=== PATIENT | female | born 1985 | race Caucasian/White ===

== ENCOUNTER 2016-10-10 17:52 | Emergency (ER) | payer MEDICAID, OTHER ==
[2016-10-10] VITALS (7 sets, daily range): BP systolic 133–162; BP diastolic 62–81; PULSE 98–130; RESP 16–24; TEMP 97.9; O2SAT 99–100
[~2016-10-10] VITALS: Ht 167.6 cm; Wt 100.0 kg
[~2016-10-10 17:52] MED LIST: PREN27TA PO
--- NOTE | 2016-10-10 17:58 | PD ---
Physical Exam Date Seen by Provider: Oct 10, 2016 Time Seen by Provider: 17:56 Narrative 31 yo female that presents to the ED for evaluation of chest pain. History of pulmonary embolism. Pain with SOB. Going on since today. Vitals are stable in triage with elevated HR. Awaiting Bed placement. Data Data Last Documented VS Vital Signs Date Time Temp Pulse Resp B/P Pulse Ox O2 Delivery O2 Flow Rate FiO2 10/10/16 17:54 97.9 130 24 162/81 99 Room Air [facility] Medical Record Reviewed: Yes Supervised Visit with YOANA: Jared Lebron Oct 10, 2016 17:58
--- NOTE | 2016-10-10 18:14 | PD ---
HPI Chief Complaint: Chest Pain Time Seen by Provider: 18:11 Travel History International Travel<30 days: No Contact w/Intl Traveler<30days: No Traveled to known affect area: No History of Present Illness HPI Patient comes in complaining of left-sided chest pain sharp stabbing like in nature without radiation. Patient states that she's having associated shortness of breath with this. Denies anything making it better or worse. Patient states she has a PE in the past less than a year ago was on Elliquis for approximately 2 months was taken off of it. Denies any recent travel, trauma, surgery, hospitalization, or tobacco use. Patient does report his implantable control. Patient states she was sitting at work when the pain started and just feels like it has just got worse. PFSH Past Medical History Blood Disorders: No Bipolar Disorder: Yes Anxiety: Yes Depression: Yes Diabetes: No Diminished Hearing: No Deep Vein Thrombosis: Yes Genitourinary: Yes (UTI, OVARIAN CYST) Kidney Stones: Yes Psychiatric: Yes (BIPOLAR) Reproductive: Yes (hx ovarian cyst) Immunizations Current: Yes Influenza Vaccination: No ?: Not : 5 Para: 2 Miscarriage: 2 Past Surgical History Cholecystectomy: Yes Oral Surgery: Yes (EXTRACTION WISDOM TOOTH,SKIN GRAFT TO MOUTH) Tonsillectomy: Yes Other Surgery: Yes (TONSILLECTOMY) Social History Alcohol Use: No Tobacco Use: No Substance Use: No Allergies-Medications (Allergen,Severity, Reaction): Coded Allergies: Latex (Verified Allergy, Intermediate, RASH/SWELLING, 10/10/16) Reported Meds & Prescriptions Reported Meds & Active Scripts Active Flexeril (Cyclobenzaprine HCl) 10 Mg Tab 10 Mg PO Q8HR PRN Naprosyn (Naproxen) 500 Mg Tab 500 Mg PO Q12HR PRN Review of Systems Except as stated in HPI: all other systems reviewed are Neg Physical Exam Narrative GENERAL: Well-developed, overly nourished, in no acute distress, and non-ill appearing. SKIN: Focused skin assessment warm and dry. HEAD: Atraumatic. Normocephalic. EYES: Pupils equal and round. EOMI. No scleral icterus. No injection or drainage. ENT: No nasal bleeding or discharge. Mucous membranes pink and moist. NECK: Trachea midline. Supple. No nuclear rigidity. CARDIOVASCULAR: Tachycardia rate and regular rhythm. No murmur appreciated. RESPIRATORY: No accessory muscle use. No respiratory distress. Clear to auscultation. Breath sounds equal bilaterally. MUSCULOSKELETAL: No obvious deformities. No clubbing. No cyanosis. No edema. Full range of motion. NEUROLOGICAL: Awake and alert. No obvious cranial nerve deficits. Motor grossly within normal limits. Normal speech. PSYCHIATRIC: Appropriate mood and affect; insight and judgment normal. Data Data Last Documented VS Vital Signs Date Time Temp Pulse Resp B/P Pulse Ox O2 Delivery O2 Flow Rate FiO2 10/10/16 20:03 98 18 137/62 100 Room Air 10/10/16 17:54 97.9 Orders Electrocardiogram (10/10/16 18:05) Basic Metabolic Panel (Bmp) (10/10/16 18:05) Ckmb (Isoenzyme) Profile (10/10/16 18:05) Complete Blood Count With Diff (10/10/16 18:05) Magnesium (Mg) (10/10/16 18:05) Prothrombin Time / Inr (Pt) (10/10/16 18:05) Act Partial Throm Time (Ptt) (10/10/16 18:05) Troponin I (10/10/16 18:05) Chest, Single Ap (10/10/16 18:05) Ecg Monitoring (10/10/16 18:05) Bilateral Bp Monitoring (10/10/16 18:05) Iv Access Insert/Monitor (10/10/16 18:05) Oximetry (10/10/16 18:05) Oxygen Administration (10/10/16 18:05) Sodium Chloride 0.9% Flush (Ns Flush) (10/10/16 18:15) Ct Pulmonary Angiogram (10/10/16 18:05) Sodium Chlor 0.9% 1000 Ml Inj (Ns 1000 M (10/10/16 18:15) Aspirin Chew (Aspirin Chew) (10/10/16 18:15) Morphine Inj (Morphine Inj) (10/10/16 19:00) Ondansetron Inj (Zofran Inj) (10/10/16 19:45) Morphine Inj (Morphine Inj) (10/10/16 19:45) Methylprednisolone So Succ Inj (Solumedr (10/10/16 19:45) Albuterol-Ipratropium Neb (Duoneb Neb) (10/10/16 19:45) Iohexol 350 Inj (Omnipaque 350 Inj) (10/10/16 19:44) Ketorolac Inj (Toradol Inj) (10/10/16 20:30) Cyclobenzaprine (Flexeril) (10/10/16 21:15) Labs Laboratory Tests Test 10/10/16 18:15 White Blood Count 14.8 TH/MM3 Red Blood Count 4.60 MIL/MM3 Hemoglobin 13.6 GM/DL Hematocrit 40.0 % Mean Corpuscular Volume 86.9 FL Mean Corpuscular Hemoglobin 29.6 PG Mean Corpuscular Hemoglobin 34.1 % Concent Red Cell Distribution Width 13.7 % Platelet Count 297 TH/MM3 Mean Platelet Volume 7.7 FL Neutrophils (%) (Auto) 51.7 % Lymphocytes (%) (Auto) 37.9 % Monocytes (%) (Auto) 7.9 % Eosinophils (%) (Auto) 1.9 % Basophils (%) (Auto) 0.6 % Neutrophils # (Auto) 7.7 TH/MM3 Lymphocytes # (Auto) 5.6 TH/MM3 Monocytes # (Auto) 1.2 TH/MM3 Eosinophils # (Auto) 0.3 TH/MM3 Basophils # (Auto) 0.1 TH/MM3 CBC Comment AUTO DIFF Differential Comment AUTO DIFF CONFIRMED Platelet Estimate NORMAL Platelet Morphology Comment NORMAL Prothrombin Time 10.2 SEC Prothromb Time International 0.9 RATIO Ratio Activated Partial 24.5 SEC Thromboplast Time Sodium Level 137 MEQ/L Potassium Level 4.1 MEQ/L Chloride Level 103 MEQ/L Carbon Dioxide Level 26.3 MEQ/L Anion Gap 8 MEQ/L Blood Urea Nitrogen 11 MG/DL Creatinine 0.81 MG/DL Estimat Glomerular Filtration 82 ML/MIN Rate Random Glucose 123 MG/DL Calcium Level 8.7 MG/DL Magnesium Level 2.3 MG/DL Total Creatine Kinase 70 U/L Troponin I LESS THAN 0.02 NG/ML MDM Medical Decision Making Medical Screen Exam Complete: Yes Emergency Medical Condition: Yes Interpretation(s) EKG reviewed by Dr. Baumann shows sinus tach with ventricular rate of 100. No STEMI. CT pulmonary angiogram read by radiology shows: 1. Negative for pulmonary embolus. 2. Multifocal lobular air trapping within the lungs. Differential diagnosis includes reactive airways disease or bronchial inflammatory changes. Chest x-ray read by the radiologist shows: Low lung volumes with basilar atelectasis. No dense consolidation or significant effusion. Differential Diagnosis Pneumonia, PE, acute coronary syndrome, pneumothorax, electrolyte abnormality, hemopneumothorax, other Narrative Course Patient said examined. IV was Established. Patient placed on tube station attendant. Patient was given any aspirin, IV fluids, and morphine. Chest x-ray and CT pulmonary angiogram were ordered. Patient reported no improvement of her symptoms with morphine 2 mg. Patient was given additional 4 mg. Patient reported no improvement of her symptoms with this just made her feel dizzy. After reviewing chest x-ray and CT was read by the radiologist. Patient was given Solu-Medrol and DuoNeb course no improvement of her symptoms. Patient was given a dose of Toradol IV. Patient will minimal improvement of her symptoms. Discussed patient with Dr. White, recommends offering patient chest pain center admission versus outpatient follow-up. Patient was offered chest pain center for further treatment and evaluation. Patient wants to just follow-up with her primary care physician tomorrow. The patients chest pain by history and evaluation appears noncardiac, nor noncardiopulmonary in etiology. Evaluation revealed no evidence of cardiac involvement at this time. There is no clinical evidence to suggest thoracic aortic aneurysm or pathology, nor evidence to suggest pulmonary embolism, pericarditis, pneumothorax, nor pneumonia at this time. The patient has minimal risk factors for cardiac disease or aortic disease. The patient was referred to and instructed to follow up with her primary care physician and/or Cardiology for potential outpatient evaluation. I discussed this management with the patient and the patient understands the importance or acute follow up. The patient was instructed to return at any time if chest pain persists, changes or worsens in anyway while awaiting follow up. The patient agreed with plan. Patient in no obvious distress upon re-evaluation. All pertinent laboratory/ Radiology result(s) discussed with patient. Patient was asked if they wanted to speak to my attending, which the patient did not wish to do at this time. Any questions/concerns in reference to patient diagnosis/condition discussed and clarified prior to patient's discharge. Reinforced sheer importance of close follow up with patient's primary physician or primary care clinic and/or business integration manager. Instructed patient to return to ED immediately, if symptoms return /worsen. Pt showed understanding of above instructions. Further instructions and recommendations were detailed in discharge paperwork. Pt ambulated without difficulty out of ED at discharge. Diagnosis Primary Impression: Left sided chest pain Referrals: Nelsy Mcdonough MD Patient Instructions: Chest Pain (ED), General Instructions Additional Instructions: Follow-up with your primary care physician and/or business integration manager in 1-2 days for reevaluation. Take all medication as prescribed. Return to the emergency department if symptoms get worse fevers, worsening chest pain, worsening shortness of breath, unable to tolerate fluids, or for other concerns. Med/Other Pt SpecificInfo: Prescription(s) given Scripts Cyclobenzaprine (Flexeril)10 Mg Tab10 Mg PO Q8HR PRN (MUSCLE PAIN) #15 TAB Ref 0 Prov:Dalila White MD 10/10/16 Naproxen (Naprosyn)500 Mg [id number] Mg PO Q12HR PRN (PAIN SCALE 1 TO 10) #14 TAB Ref 0 Prov:Dalila White MD 10/10/16 Disposition: 01 DISCHARGE HOME Condition: Stable Mynor Garrison Oct 10, 2016 18:14
[2016-10-10] MEDS ORDERED: SODIUM CHLORIDE 0.9% FLUSH 10 ML FLUSH IVF PRN (18:15)
[2016-10-10] MEDS ORDERED: SODIUM CHLOR 0.9% 1000 ML INJ 1,000 ML IV ONE (18:15)
[2016-10-10] MEDS ORDERED: ASPIRIN 81 MG CHEW TAB PO ONE (18:15)
[2016-10-10 18:37] LABS: AUTOMATED NEUTROPHIL # 7.7 TH/MM3 (1.8-7.7); BASOPHIL # 0.1 TH/MM3 (0-0.2); BASOPHIL % 0.6 % (0.0-2.0); EOSINOPHIL # 0.3 TH/MM3 (0-0.4); EOSINOPHIL % 1.9 % (0.0-4.0); LYMPH % 37.9 % (9.0-44.0); LYMPHOCYTE # 5.6 TH/MM3 (1.0-4.8); MEAN CELL VOLUME 86.9 FL (80.0-100.0); MEAN CORPUSCULAR HEMOGLOBIN 29.6 PG (27.0-34.0); MEAN CORPUSCULAR HGB CONC 34.1 % (32.0-36.0); MONO % 7.9 % (0.0-8.0); NEUT % 51.7 % (16.0-70.0); PLATELET COUNT 297 TH/MM3 (150-450); RED CELL DISTRIBUTION WIDTH 13.7 % (11.6-17.2); WHITE BLOOD COUNT 14.8 TH/MM3 (4.0-11.0)
[2016-10-10 18:45] LABS: HEMO FLAGS AUTO DIFF
[2016-10-10 18:48] LABS: ANION GAP 8 MEQ/L (5-15); BICARBONATE 26.3 MEQ/L (21.0-32.0); BLOOD UREA NITROGEN 11 MG/DL (7-18); CHLORIDE 103 MEQ/L (98-107); GLOMERULAR FILTRATION RATE 82 ML/MIN (>89); MAGNESIUM 2.3 MG/DL (1.5-2.5); POTASSIUM 4.1 MEQ/L (3.5-5.1); SODIUM (NA) 137 MEQ/L (136-145)
[2016-10-10 18:53] LABS: CREATINE KINASE 70 U/L (26-192)
[2016-10-10 19:00] LABS: APTT (PATIENT) 24.5 SEC (24.3-30.1); INTERNATIONAL NORMALIZED RATIO 0.9 RATIO; PROTHROMBIN TIME - PATIENT 10.2 SEC (9.8-11.6)
[2016-10-10] MEDS ORDERED: MORPHINE SULFATE 4 MG/ML INJ IV PUSH ONE ×2 (19:00→19:45)
--- NOTE | 2016-10-10 19:05 | RADRPT ---
EXAM DATE/TIME: 10/10/2016 18:25 [facility] COMPARISON: No previous studies available for comparison. INDICATIONS : Chest pain and shortness of breath. MEDICAL HISTORY : Blood clots in lungs. SURGICAL HISTORY : None. ENCOUNTER: Initial ACUITY: 1 day PAIN SCORE: 10/10 LOCATION: chest FINDINGS: A single view of the chest demonstrates the lungs to be symmetrically aerated without evidence of mas s, infiltrate or effusion. The cardiomediastinal contours are unremarkable. Osseous structures are intact. CONCLUSION: 1. Low lung volumes with basilar atelectasis. No dense consolidation or significant effusion. Torey Singer MD on October 10, 2016 at 19:02 Board Certified Radiologist. This report was verified electronically.
--- NOTE | 2016-10-10 19:34 | RADRPT ---
EXAM DATE/TIME: 10/10/2016 19:01 [facility] COMPARISON: No previous studies available for comparison. INDICATIONS : Chest pain, evaluate for pulmonary embolus. IV CONTRAST: 70 cc Omnipaque 350 (iohexol) IV RADIATION DOSE: 24.03 CTDIvol (mGy) MEDICAL HISTORY : Deep venous thrombosis. Pulmonary embolus. SURGICAL HISTORY : Cholecystectomy. ENCOUNTER: Initial ACUITY: 1 day PAIN SCALE: 5/10 LOCATION: Bilateral chest TECHNIQUE: Volumetric scanning of the chest was performed using a pulmonary embolism protocol MIP images were re constructed. Using automated exposure control and adjustment of the mA and/or kV according to patien t size, radiation dose was kept as low as reasonably achievable to obtain optimal diagnostic quality images. DICOM format image data is available electronically for review and comparison. Follow-up recommendations for incidentally detected pulmonary nodules are based at a minimum on nodul e size and patient risk factors according to Fleischner Society Guidelines. FINDINGS: No filling defects identified to suggest pulmonary embolus. No pleural or pericardial effusion. No ad enopathy. There are low lung volumes. There is also air trapping within the lungs which could be related to deidre e form of reactive airways disease or airway inflammation. CONCLUSION: 1. Negative for pulmonary embolus. 2. Multifocal lobular air trapping within the lungs. Differential diagnosis includes reactive airways disease or bronchial inflammatory changes. Torey Singer MD on October 10, 2016 at 19:27 Board Certified Radiologist. This report was verified electronically.
[2016-10-10] MEDS ORDERED: IOHEXOL 350 MG/ML 10 ML VIAL (for RAD DIAG) IV ONE (19:44)
[2016-10-10] MEDS ORDERED: RESP: ALBUTEROL 2.5 MG/IPRATROPIUM 0.5 MG NEB (SCH) INH ONE (19:45)
[2016-10-10] MEDS ORDERED: ONDANSETRON HCL 4 MG/2 ML VIAL IV PUSH ONE (19:45)
[2016-10-10] MEDS ORDERED: methylPREDNISolone SOD SUCC 125 MG/2 ML VIAL IV PUSH ONE (19:45)
[2016-10-10 19:50] LABS: PLATELET ESTIMATE SMEAR NORMAL (NORMAL); PLATELET MORPHOLOGY NORMAL (NORMAL); SCAN/DIFF AUTO DIFF CONFIRMED
[2016-10-10] MEDS ORDERED: KETOROLAC TROMETHAMINE 30 MG/ML (IVP) VIAL IV PUSH ONE (20:30)
[2016-10-10] MEDS ORDERED: NAPR500 PO (21:13)
[2016-10-10] MEDS ORDERED: CYCL1TAB29 PO (21:13)
[2016-10-10] MEDS ORDERED: CYCLOBENZAPRINE HCL 10 MG TAB PO ONE (21:15)
--- NOTE | 2016-10-11 11:17 | EKG ---
Date Performed: 10/10/2016 Time Performed: 18:07:28 PTAGE: 31 years EKG: SINUS TACHYCARDIA ABNORMAL RHYTHM ECG NO PREVIOUS TRACING DOCTOR: Vik Mckay Interpretating Date/Time 10/11/2016 11:13:22
== END 2016-10-10 21:22 | disposition home or self-care (01) ==
LOC: NEPC 17:52
DX: R07.9 Chest pain, unspecified (principal); R06.02 Shortness of breath; Z86.711 Personal history of pulmonary embolism; Z86.718 Personal history of other venous thrombosis and embolism; Z90.49 Acquired absence of other specified parts of digestive tract; Z87.442 Personal history of urinary calculi
CPT/HCPCS: 71010; 71275; 80048; 82550; 83735; 84484; 85025; 85610; 85730; 93005; 94664; 96361; 96374; 96375; 96376; 99285; J1885; J2270; J2405; J2930; J7030; Q9967

== ENCOUNTER 2016-12-25 17:50 | Emergency (ER) | payer MEDICAID ==
[~2016-12-25] VITALS: Ht 162.6 cm; Wt 112.0 kg
[~2016-12-25 17:50] MED LIST changes: +CYCL1TAB29 PO; +NAPR500 PO; -PREN27TA PO
[2016-12-25 17:52] VITALS: BP 154/99; PULSE 131; RESP 22; TEMP 98.9; O2SAT 96
[2016-12-25 18:44] LABS: BACTERIA, URINE RARE /hpf; BLOOD, URINE SMALL (NEG); COMMENT (UR) CULT NOT INDICATED; CULTURE IF INDICATED CULT NOT INDICATED; GLUCOSE,URINE NEG (NEG); KETONE, URINE NEG (NEG); MUCUS URINE FEW /lpf (OCC); NITRITE,URINE NEG (NEG); PH, URINE 5.5 (5.0-8.5); SQUAMOUS EPITHELIAL CELL URINE 4 /hpf (0-5); URINE COLOR YELLOW (YELLW/STRAW)
== END 2016-12-25 19:13 | disposition left against medical advice (07) ==
LOC: NED 17:50
DX: R31.9 Hematuria, unspecified (principal); Z53.21 Procedure and treatment not carried out due to patient leaving prior to being seen by health care provider
CPT/HCPCS: 81001; 84703; 99281

== ENCOUNTER 2017-01-14 13:31 | Inpatient (IN) | payer MEDICAID ==
[2017-01-14 13:35] VITALS: BP 155/99; PULSE 131; RESP 20; TEMP 98.2; O2SAT 100
[2017-01-14] MEDS ORDERED: ONDANSETRON HCL 4 MG/2 ML VIAL IV PUSH ONE (13:45)
[2017-01-14] MEDS ORDERED: MORPHINE SULFATE 4 MG/ML INJ IV PUSH ONE ×2 (13:45→15:30)
[2017-01-14 14:19] LABS: AUTOMATED NEUTROPHIL # 8.7 TH/MM3 (1.8-7.7); BASOPHIL # 0.1 TH/MM3 (0-0.2); BASOPHIL % 0.6 % (0.0-2.0); EOSINOPHIL # 0.3 TH/MM3 (0-0.4); EOSINOPHIL % 2.2 % (0.0-4.0); HEMO FLAGS DIFF FINAL; LYMPH % 32.7 % (9.0-44.0); LYMPHOCYTE # 4.9 TH/MM3 (1.0-4.8); MEAN CELL VOLUME 87.2 FL (80.0-100.0); MEAN CORPUSCULAR HEMOGLOBIN 30.2 PG (27.0-34.0); MEAN CORPUSCULAR HGB CONC 34.7 % (32.0-36.0); MONO % 6.2 % (0.0-8.0); NEUT % 58.3 % (16.0-70.0); PLATELET COUNT 276 TH/MM3 (150-450); RED BLOOD COUNT 4.47 MIL/MM3 (4.00-5.30); RED CELL DISTRIBUTION WIDTH 12.9 % (11.6-17.2); WHITE BLOOD COUNT 14.9 TH/MM3 (4.0-11.0)
--- NOTE | 2017-01-14 14:20 | PD ---
HPI Chief Complaint: Chest Pain Time Seen by Provider: 13:41 Travel History International Travel<30 days: No Contact w/Intl Traveler<30days: No Traveled to known affect area: No History of Present Illness HPI Patient is a 31-year-old female presenting to emergency department evaluation of shortness of breath and chest pain. Patient states her symptoms started approximate 45 minutes prior to arrival. She states the pain is a 10 out of 10 and feels tight. There are no alleviating factors. Patient has a history of pulmonary embolism 4 months ago. Patient states that she was on Eliquis for 1 month and has been off of it for the last 2-3 months. She denies any blood disorders, currently has been Nexplanon implanted in her arm. She denies any other complaints at this time. She was feeling well prior to the episode this morning. PFSH Past Medical History Blood Disorders: No Bipolar Disorder: Yes Anxiety: Yes Depression: Yes Diabetes: No Diminished Hearing: No Deep Vein Thrombosis: Yes Genitourinary: Yes (UTI, OVARIAN CYST) Kidney Stones: Yes Psychiatric: Yes (BIPOLAR) Reproductive: Yes (hx ovarian cyst) Immunizations Current: Yes : 5 Para: 2 Miscarriage: 2 Past Surgical History Cholecystectomy: Yes Oral Surgery: Yes (EXTRACTION WISDOM TOOTH,SKIN GRAFT TO MOUTH) Tonsillectomy: Yes Other Surgery: Yes (TONSILLECTOMY) Social History Alcohol Use: No Tobacco Use: No Substance Use: No Allergies-Medications (Allergen,Severity, Reaction): Coded Allergies: latex (Unverified Allergy, Intermediate, RASH/SWELLING, 01/14/17) Reported Meds & Prescriptions Reported Meds & Active Scripts Active No Active Prescriptions or Reported Medications Review of Systems Except as stated in HPI: all other systems reviewed are Neg General / Constitutional: No: Fever Eyes: No: Blurred Vision HENT: No: Headaches Cardiovascular: Positive: Chest Pain or Discomfort, Tachycardia Respiratory: Positive: Shortness of Breath Gastrointestinal: No: Nausea, Abdominal Pain Musculoskeletal: No: Myalgias Physical Exam Narrative GENERAL: Well-developed, well-nourished, alert female. Appears uncomfortable. SKIN: Warm and dry. HEAD: Atraumatic. Normocephalic. EYES: Pupils equal and round. No scleral icterus. No injection or drainage. ENT: No nasal bleeding or discharge. Mucous membranes pink and moist. NECK: Trachea midline. No JVD. CARDIOVASCULAR: Tachycardic RESPIRATORY: No accessory muscle use. Diminished in bases. GASTROINTESTINAL: Abdomen soft, non-tender, nondistended. Hepatic and splenic margins not palpable. MUSCULOSKELETAL: Extremities without clubbing, cyanosis, or edema. No obvious deformities. NEUROLOGICAL: Awake and alert. No obvious cranial nerve deficits. Motor grossly within normal limits. Five out of 5 muscle strength in the arms and legs. Normal speech. PSYCHIATRIC: Appropriate mood and affect; insight and judgment normal. Data Data Last Documented VS Vital Signs Date Time Temp Pulse Resp B/P (MAP) Pulse Ox O2 Delivery O2 Flow Rate FiO2 01/14/17 13:55 100 Nasal Cannula 2.00 01/14/17 13:35 98.2 131 20 155/99 (117) Orders Orders Ct Pulmonary Angiogram (01/14/17 ) Ed Urine Pregnancytest Poc (01/14/17 13:44) Complete Blood Count With Diff (01/14/17 13:44) Comprehensive Metabolic Panel (01/14/17 13:44) Act Partial Throm Time (Ptt) (01/14/17 13:44) Prothrombin Time / Inr (Pt) (01/14/17 13:44) Iv Access Insert/Monitor (01/14/17 13:44) Oxygen Administration (01/14/17 13:44) Morphine Inj (Morphine Inj) (01/14/17 13:45) Ondansetron Inj (Zofran Inj) (01/14/17 13:45) Ckmb (Isoenzyme) Profile (01/14/17 14:46) Troponin I (01/14/17 14:46) Iohexol 350 Inj (Omnipaque 350 Inj) (01/14/17 14:56) Morphine Inj (Morphine Inj) (01/14/17 15:30) Methylprednisolone So Succ Inj (Solumedr (01/14/17 15:30) B-Type Natriuretic Peptide (01/14/17 15:46) Lactic Acid (01/14/17 15:46) Cefepime Inj (Maxipime Inj) (01/14/17 16:00) Azithromycin Inj (Zithromax Inj) (01/14/17 16:00) Electrocardiogram (01/14/17 13:48) Place In Observation (01/14/17 ) Vital Signs (Adult) Q4H (01/14/17 16:21) Activity Oob With Assistance (01/14/17 16:21) Marketing Analytics Lead / Telemetry .CONTINUOUS (01/14/17 16:21) Intake + Output ABHINAV.QSHIFT (01/14/17 16:21) Diet Heart Healthy (01/14/17 Dinner) Sodium Chloride 0.9% Flush (Ns Flush) (01/14/17 16:30) Sodium Chloride 0.9% Flush (Ns Flush) (01/14/17 21:00) Basic Metabolic Panel (Bmp) (01/15/17 06:00) Complete Blood Count With Diff (01/15/17 06:00) Creatine Kinase (Cpk) (01/14/17 18:00) Creatine Kinase (Cpk) (01/15/17 00:00) Troponin I (01/14/17 18:00) Troponin I (01/15/17 00:00) Electrocardiogram (01/14/17 18:00) Electrocardiogram (01/15/17 00:00) Naloxone Inj (Narcan Inj) (01/14/17 16:30) Levofloxacin 750 Mg Premix Inj (Levaquin (01/14/17 17:00) Admit Order (Ed Use Only) (01/14/17 16:25) Labs Laboratory Tests Test 01/14/17 13:50 01/14/17 16:00 01/14/17 16:10 White Blood Count 14.9 TH/MM3 Red Blood Count 4.47 MIL/MM3 Hemoglobin 13.5 GM/DL Hematocrit 39.0 % Mean Corpuscular Volume 87.2 FL Mean Corpuscular Hemoglobin 30.2 PG Mean Corpuscular Hemoglobin Concent 34.7 % Red Cell Distribution Width 12.9 % Platelet Count 276 TH/MM3 Mean Platelet Volume 7.8 FL Neutrophils (%) (Auto) 58.3 % Lymphocytes (%) (Auto) 32.7 % Monocytes (%) (Auto) 6.2 % Eosinophils (%) (Auto) 2.2 % Basophils (%) (Auto) 0.6 % Neutrophils # (Auto) 8.7 TH/MM3 Lymphocytes # (Auto) 4.9 TH/MM3 Monocytes # (Auto) 0.9 TH/MM3 Eosinophils # (Auto) 0.3 TH/MM3 Basophils # (Auto) 0.1 TH/MM3 CBC Comment DIFF FINAL Differential Comment Prothrombin Time 10.2 SEC Prothromb Time International Ratio 0.9 RATIO Activated Partial Thromboplast Time 25.0 SEC Blood Urea Nitrogen 12 MG/DL Creatinine 0.84 MG/DL Random Glucose 126 MG/DL Total Protein 7.9 GM/DL Albumin 3.3 GM/DL Calcium Level 9.3 MG/DL Alkaline Phosphatase 64 U/L Aspartate Amino Transf (AST/SGOT) 13 U/L Alanine Aminotransferase (ALT/SGPT) 18 U/L Total Bilirubin 0.5 MG/DL Sodium Level 135 MEQ/L Potassium Level 3.8 MEQ/L Chloride Level 102 MEQ/L Carbon Dioxide Level 24.4 MEQ/L Anion Gap 9 MEQ/L Estimat Glomerular Filtration Rate 79 ML/MIN Total Creatine Kinase 56 U/L Troponin I LESS THAN 0.02 NG/ML MDM Medical Decision Making Medical Screen Exam Complete: Yes Emergency Medical Condition: Yes Medical Record Reviewed: Yes Interpretation(s) Last Impressions CT Angiography 01/14/17 0000 Signed Impressions: Service Date/Time: Saturday, January 14, 2017 14:42 - CONCLUSION: 1. No pulmonary emboli. 2. Low lung volumes with scattered groundglass opacities. This could relate to infectious etiologies, pulmonary edema, or noninfectious inflammatory processes. Duane Casas Jr., MD Laboratory Tests Test 01/14/17 13:50 White Blood Count 14.9 TH/MM3 Red Blood Count 4.47 MIL/MM3 Hemoglobin 13.5 GM/DL Hematocrit 39.0 % Mean Corpuscular Volume 87.2 FL Mean Corpuscular Hemoglobin 30.2 PG Mean Corpuscular Hemoglobin Concent 34.7 % Red Cell Distribution Width 12.9 % Platelet Count 276 TH/MM3 Mean Platelet Volume 7.8 FL Neutrophils (%) (Auto) 58.3 % Lymphocytes (%) (Auto) 32.7 % Monocytes (%) (Auto) 6.2 % Eosinophils (%) (Auto) 2.2 % Basophils (%) (Auto) 0.6 % Neutrophils # (Auto) 8.7 TH/MM3 Lymphocytes # (Auto) 4.9 TH/MM3 Monocytes # (Auto) 0.9 TH/MM3 Eosinophils # (Auto) 0.3 TH/MM3 Basophils # (Auto) 0.1 TH/MM3 CBC Comment DIFF FINAL Differential Comment Prothrombin Time 10.2 SEC Prothromb Time International Ratio 0.9 RATIO Activated Partial Thromboplast Time 25.0 SEC Blood Urea Nitrogen 12 MG/DL Creatinine 0.84 MG/DL Random Glucose 126 MG/DL Total Protein 7.9 GM/DL Albumin 3.3 GM/DL Calcium Level 9.3 MG/DL Alkaline Phosphatase 64 U/L Aspartate Amino Transf (AST/SGOT) 13 U/L Alanine Aminotransferase (ALT/SGPT) 18 U/L Total Bilirubin 0.5 MG/DL Sodium Level 135 MEQ/L Potassium Level 3.8 MEQ/L Chloride Level 102 MEQ/L Carbon Dioxide Level 24.4 MEQ/L Anion Gap 9 MEQ/L Estimat Glomerular Filtration Rate 79 ML/MIN Vital Signs Date Time Temp Pulse Resp B/P (MAP) Pulse Ox O2 Delivery O2 Flow Rate FiO2 01/14/17 13:55 100 Nasal Cannula 2.00 01/14/17 13:35 98.2 131 20 155/99 (117) 100 Differential Diagnosis Pulmonary embolism versus reactive airway disease versus anxiety versus metabolic disorder versus pneumonia versus ACS Narrative Course Patient's a 31-year-old female presenting for evaluation of shortness of breath and chest pain. She has a history of pulmonary embolism, she is tachycardic and tachypneic on arrival. Patient was placed on O2 at 2 L. Labs and imaging ordered and pending. Initial EKG shows sinus tachycardia with a rate of 118. CT pulmonary angiogram which was read by the radiologist shows no pulmonary emboli. There are low lung volumes with scattered groundglass opacities. This could relate to infectious etiology, pulmonary edema, or noninfectious inflammatory process. Solu-Medrol 125 mg IV ordered. Patient was reassessed, she continued to complain of pain. Additional dose of morphine ordered. CBC with a white count of 14.9 CMP sodium 135, otherwise no acute findings. Empiric abx ordered. Cardiac enzymes are pending, BNP and lactic acid admitted and are also pending. Patient will be admitted due to pneumonia. She continues to be symptomatic with a heart rate at 121. [facility] paged for admission. Discussed with Dr. Man who accepted admit. Pt HR is currently 106. She was reassessed and pain is improved. Admit orders placed. Cardiac enzymes are negative 1 set. Diagnosis Primary Impression: Pneumonia Qualified Codes: J18.9 - Pneumonia, unspecified organism Additional Impression: Atypical chest pain Admitting Information Admitting Physician Requests: Admit Scripts No Active Prescriptions or Reported Meds Condition: Henrietta Wade Jan 14, 2017 14:20
[2017-01-14 14:23] LABS: INTERNATIONAL NORMALIZED RATIO 0.9 RATIO; PROTHROMBIN TIME - PATIENT 10.2 SEC (9.8-11.6)
[2017-01-14] MEDS ORDERED: IOHEXOL 350 MG/ML 10 ML VIAL (for RAD DIAG) IVCONTRAST ONE (14:56)
[2017-01-14 15:00] LABS: ALKALINE PHOSPHATASE 64 U/L (45-117); ALT (GPT) 18 U/L (10-53); AST (GOT) 13 U/L (15-37); BLOOD UREA NITROGEN 12 MG/DL (7-18); CHLORIDE 102 MEQ/L (98-107); GLOMERULAR FILTRATION RATE 79 ML/MIN (>89); POTASSIUM 3.8 MEQ/L (3.5-5.1); SODIUM (NA) 135 MEQ/L (136-145); TOTAL BILIRUBIN ADULT 0.5 MG/DL (0.2-1.0)
[2017-01-14 15:01] LABS: ANION GAP 9 MEQ/L (5-15); BICARBONATE 24.4 MEQ/L (21.0-32.0)
--- NOTE | 2017-01-14 15:21 | RADRPT ---
EXAM DATE/TIME: 01/14/2017 14:42 [facility] COMPARISON: CT PULMONARY ANGIOGRAM, October 10, 2016, 19:01. INDICATIONS : Chest pain and shortness of breath for forty five minutes. IV CONTRAST: 70 cc Omnipaque 350 (iohexol) IV RADIATION DOSE: 22.82 CTDIvol (mGy) ; Patient motion; Patient body habitus MEDICAL HISTORY : Deep venous thrombosis. Pulmonary embolism. SURGICAL HISTORY : Cholecystectomy. ENCOUNTER: Initial ACUITY: 1 day PAIN SCALE: 6/10 LOCATION: chest TECHNIQUE: Volumetric scanning of the chest was performed using a pulmonary embolism protocol MIP images were re constructed. Using automated exposure control and adjustment of the mA and/or kV according to patien t size, radiation dose was kept as low as reasonably achievable to obtain optimal diagnostic quality images. DICOM format image data is available electronically for review and comparison. Follow-up recommendations for detected pulmonary nodules are based at a minimum on nodule size and pa tient risk factors according to Fleischner Society Guidelines. FINDINGS: PULMONARY ARTERIES: No filling defects are seen in the pulmonary arteries through the segmental level. LUNGS: There are scattered ground glass opacities particularly within the lung bases. No bronchiectasis. Low lung volumes noted. PLEURAE: There is no pleural thickening or pleural effusion. MEDIASTINUM: There is good visualization of the great vessels of the middle mediastinum. No evidence of mediastin al or hilar adenopathy/mass. MUSCULOSKELETAL: Within normal limits for patient age. MISCELLANEOUS: The visualized upper abdominal organs demonstrate no acute abnormality. CONCLUSION: 1. No pulmonary emboli. 2. Low lung volumes with scattered groundglass opacities. This could relate to infectious etiologies, pulmonary edema, or noninfectious inflammatory processes. Duane Csaas Jr., MD on January 14, 2017 at 15:16 Board Certified Radiologist. This report was verified electronically.
[2017-01-14] MEDS ORDERED: methylPREDNISolone SOD SUCC 125 MG/2 ML VIAL IV PUSH ONE (15:30)
[2017-01-14] MEDS ORDERED: AZITHROMYCIN INJ 500 MG in SODIUM CHLOR 0.9% 250 ML INJ 250 ML IV ONE (16:00)
[2017-01-14] MEDS: CEFEPIME INJ 2,000 MG in SODIUM CHLORIDE 0.9% INJ 100 ML IV ONE ×3 (16:29→17:21)
[2017-01-14] MEDS ORDERED: NALOXONE HCL 0.4 MG/ML AMP IV PUSH PRN (16:30)
[2017-01-14] MEDS ORDERED: SODIUM CHLORIDE 0.9% FLUSH 10 ML FLUSH IV FLUSH PRN (16:30)
[2017-01-14 16:33] LABS: CREATINE KINASE 56 U/L (26-192)
[2017-01-14] MEDS ORDERED: LEVOFLOXACIN 750 MG PREMIX INJ 150 ML IV SCH (17:00)
[2017-01-14 17:04] VITALS: BP 127/61; PULSE 105; RESP 22; TEMP 98.4; O2SAT 97
--- NOTE | 2017-01-14 17:56 | HHI.HP ---
[facility] Service [facility] Primary Care Physician No Primary Care Physician Admission Diagnosis PNA Diagnoses: (1) Atypical chest pain (2) Pneumonia Chief Complaint: Chest pain Travel History International Travel<30 Days: No Contact w/Intl Traveler <30 Da: No Traveled to Known Affected Are: No Sepsis Criteria SIRS Criteria (2 or more): Heart rate over 90, RR > 20 or PaCO2 < 32, WBC > 54518, < 4000 or > 10% bands Sepsis Criteria (SIRS+source): Infect source susp/known Severe Sepsis (+one): Lactate >2 History of Present Illness Mrs. London is a 31-year-old female patient with a known medical history of PE previously on Eliquis who presented to the ED with complaints of chest pain. Patient states that her chest pain started around noon today as she was sitting at her desk at work, the pain was located in her midsternal chest, denies any radiation of pain, states a 10/10 on pain scale, constant in nature, denies any associated nausea or vomiting or diaphoresis, does admit to associated dyspnea and headache. Patient complaints of worsening pain on inspiration. Pain has been constant for over 5 hours with mild relief of pain medications. Patient does report a history of PE and her MD has recently stopped her Eliquis 2 months ago. Denies any recent fever, chills, cough, dizziness, shortness of breath, abdominal pain, nausea, vomiting, diarrhea or dysuria. Review of Systems Constitutional: DENIES: Fever, Chills Endocrine: DENIES: Polydipsia Ears, nose, mouth, throat: DENIES: Hearing loss, Throat pain Respiratory: DENIES: Cough, Sputum production, Shortness of breath Cardiovascular: COMPLAINS OF: Chest pain, Palpitations Gastrointestinal: DENIES: Abdominal pain, Bloody stools, Constipation, Diarrhea , Nausea, Vomiting Genitourinary: DENIES: Abnormal vaginal bleeding Musculoskeletal: DENIES: Joint pain Psychiatric: COMPLAINS OF: Anxiety Except as stated in HPI: all other systems reviewed are Neg Past Family Social History Past Medical History History of PE, previously on Eliquis now currently stopped. Anxiety Depression Bipolar disorder as a teenager History of ovarian cysts. Past Surgical History Cholecystectomy [place] teeth extraction Tonsillectomy Reported Medications NONE Allergies: Coded Allergies: latex (Unverified Allergy, Intermediate, RASH/SWELLING, 01/14/17) Active Ordered Medications Current Medications Medications (Trade) Dose Ordered Sig/Keven Route Start Time Stop Time Status Last Admin (NS Flush) 2 ml UNSCH PRN IV FLUSH 01/14/17 16:30 (NS Flush) 2 ml BID IV FLUSH 01/14/17 21:00 (Narcan Inj) 0.4 mg UNSCH PRN IV PUSH 01/14/17 16:30 Levofloxacin/ Dextrose 150 ml @ 100 mls/hr Q24H IV 01/14/17 17:00 Family History Grandmother history of cardiovascular disease, stroke and lymphoma. Mother and father with no known significant medical history. Social History Denies any current tobacco use. Denies any alcohol use. Denies any illicit drug use. Physical Exam Vital Signs Vital Signs Date Time Temp Pulse Resp B/P (MAP) Pulse Ox O2 Delivery O2 Flow Rate FiO2 01/14/17 17:06 01/14/17 17:04 98.4 105 22 127/61 (83) 97 Room Air 01/14/17 13:55 100 Nasal Cannula 2.00 01/14/17 13:35 98.2 131 20 155/99 (117) 100 Physical Exam GENERAL: This is a well-nourished, well-developed female patient,with current complaints of chest pain. SKIN: No rashes, ecchymoses or lesions. Warm and dry. HEENT: Atraumatic. Normocephalic. Pupils equal round and reactive. Extraocular motions intact. No scleral icterus. No injection or drainage. Nose without bleeding. Throat without erythema, tonsillar hypertrophy or exudate. Uvula midline. Airway patent. NECK: Trachea midline. No JVD. Supple. CARDIOVASCULAR: Tachycardic. Without murmurs, gallops, or rubs. RESPIRATORY: Diminished breath sounds in anterior bases. Breath sounds equal bilaterally. No wheezes, rales, or rhonchi. GASTROINTESTINAL: Abdomen soft, non-tender, nondistended. No guarding. MUSCULOSKELETAL: Extremities without clubbing, cyanosis, or edema. No joint tenderness, effusion, or edema noted. NEUROLOGICAL: Awake and alert. Cranial nerves II through XII intact. Motor and sensory grossly within normal limits. Five out of 5 muscle strength in all muscle groups. Normal speech. Laboratory Laboratory Tests Test 01/14/17 13:50 01/14/17 16:00 01/14/17 16:10 White Blood Count 14.9 Red Blood Count 4.47 Hemoglobin 13.5 Hematocrit 39.0 Mean Corpuscular Volume 87.2 Mean Corpuscular Hemoglobin 30.2 Mean Corpuscular Hemoglobin Concent 34.7 Red Cell Distribution Width 12.9 Platelet Count 276 Mean Platelet Volume 7.8 Neutrophils (%) (Auto) 58.3 Lymphocytes (%) (Auto) 32.7 Monocytes (%) (Auto) 6.2 Eosinophils (%) (Auto) 2.2 Basophils (%) (Auto) 0.6 Neutrophils # (Auto) 8.7 Lymphocytes # (Auto) 4.9 Monocytes # (Auto) 0.9 Eosinophils # (Auto) 0.3 Basophils # (Auto) 0.1 CBC Comment DIFF FINAL Differential Comment Prothrombin Time 10.2 Prothromb Time International Ratio 0.9 Activated Partial Thromboplast Time 25.0 Blood Urea Nitrogen 12 Creatinine 0.84 Random Glucose 126 Total Protein 7.9 Albumin 3.3 Calcium Level 9.3 Alkaline Phosphatase 64 Aspartate Amino Transf (AST/SGOT) 13 Alanine Aminotransferase (ALT/SGPT) 18 Total Bilirubin 0.5 Sodium Level 135 Potassium Level 3.8 Chloride Level 102 Carbon Dioxide Level 24.4 Anion Gap 9 Estimat Glomerular Filtration Rate 79 Total Creatine Kinase 56 Troponin I LESS THAN 0.02 B-Type Natriuretic Peptide 8 Lactic Acid Level 2.2 Result Diagram: 01/14/17 1350 01/14/17 [address] Angiography 01/14/17 0000 Signed Impressions: Service Date/Time: Saturday, January 14, 2017 14:42 - CONCLUSION: 1. No pulmonary emboli. 2. Low lung volumes with scattered groundglass opacities. This could relate to infectious etiologies, pulmonary edema, or noninfectious inflammatory processes. Duane Casas Jr., MD Septic Shock Reassessment Heart: Other (tachycardia) Lungs: Diminished Skin: Warm Peripheral Pulses: Bounding Right Radial Bounding Left Radial Bounding Right Dorsalis Pedis Bounding Left Dorsalis Pedis Capillary Refill: Brisk, <2 seconds Caprini VTE Risk Assessment Caprini VTE Risk Assessment: No/Low Risk (score <= 1) Caprini Risk Assessment Model Point Value = 1 Point Value = 2 Point Value = 3 Point Value = 5 Age 41-60 Minor surgery BMI > 25 kg/m2 Swollen legs Varicose veins or History of unexplained or recurrent spontaneous Oral contraceptives or hormone replacement Sepsis (< 1 month) Serious lung disease, including pneumonia (< 1 month) Abnormal pulmonary function Acute myocardial infarction Congestive heart failure (< 1 month) History of inflammatory bowel disease Medical patient at bed rest Age 61-74 Arthroscopic surgery Major open surgery (> 45 min) Laparoscopic surgery (> 45 min) Malignancy Confined to bed (> 72 hours) Immobilizing plaster cast Central venous access Age >= 75 History of VTE Family history of VTE Factor V Leiden Prothrombin [id number] Lupus anticoagulant Anticardiolipin antibodies Elevated serum homocysteine Heparin-induced thrombocytopenia Other congenital or acquired thrombophilia Stroke (< 1 month) Elective arthroplasty Hip, pelvis, or leg fracture Acute spinal cord injury (< 1 month) Prophylaxis Regimen Total Risk Factor Score Risk Level Prophylaxis Regimen 0-1 Low Early ambulation 2 Moderate Order ONE of the following: *Sequential Compression Device (SCD) *Heparin 5000 units SQ BID 3-4 Higher Order ONE of the following medications: *Heparin 5000 units SQ TID *Enoxaparin/Lovenox 40 mg SQ daily (WT < 150 kg, CrCl > 30 mL/min) *Enoxaparin/Lovenox 30 mg SQ daily (WT < 150 kg, CrCl > 10-29 mL/min) *Enoxaparin/Lovenox 30 mg SQ BID (WT < 150 kg, CrCl > 30 mL/min) AND/OR *Sequential Compression Device (SCD) 5 or more Highest Order ONE of the following medications: *Heparin 5000 units SQ TID (Preferred with Epidurals) *Enoxaparin/Lovenox 40 mg SQ daily (WT < 150 kg, CrCl > 30 mL/min) *Enoxaparin/Lovenox 30 mg SQ daily (WT < 150 kg, CrCl > 10-29 mL/min) *Enoxaparin/Lovenox 30 mg SQ BID (WT < 150 kg, CrCl > 30 mL/min) AND *Sequential Compression Device (SCD) Assessment and Plan Assessment and Plan Mrs. London is a 31-year-old female patient with a known medical history of PE previously on Eliquis who presented to the ED with complaints of chest pain. Patient states that her chest pain started around noon today as she was sitting at her desk at work, the pain was located in her midsternal chest, denies any radiation of pain, states a 10/10 on pain scale, constant in nature, denies any associated nausea or vomiting or diaphoresis, does admit to associated dyspnea and headache. Patient complaints of worsening pain on inspiration. Atypical chest pain suspect secondary to atypical community-acquired pneumonia Sepsis suspect secondary to above (WBC 14.9, tachycardia, tachypnea, lactic acid 2.2) - CTA reviewed showing no PE. Low lung volumes with scattered ground glass opacities. - Serial EKGs and troponins ordered for ruling out ACS purposes. Continue to trend and follow. Initial troponin flat. - EKG reviewed showing sinus tachycardia. HR 118. No arrhythmias. - Given Methylprednisone 125 mg IV x 1 in ED. Will give one time dose of Toradol. Morphine IV given in ED. Will have PO pain medications available PRN per pain scale. - Supplemental O2 to keep sats >92%. - Started on IVF. NS @ 100 ml/hr. - CBC and BMP in am. Follow. BNP 8. - Continue cardiac telemetry. - Given Azithromycin IV and Cefepime in ED. Will start on Azithromycin IV scheduled for atypical pneumonia. - Supportive care. Continue to follow clinically. DVT prophylaxis: SCDs. Problem Qualifiers (1) Pneumonia: Qualified Codes: J18.9 - Pneumonia, unspecified organism Dalila Howard Jan 14, 2017 17:56
[2017-01-14] MEDS ORDERED: KETOROLAC TROMETHAMINE 60 MG/2 ML (IM) VIAL IM ONE (18:00)
[2017-01-14 18:03] VITALS: BP 133/74; PULSE 105; RESP 22; TEMP 98; O2SAT 95
[2017-01-14] MEDS: SODIUM CHLOR 0.9% 1000 ML INJ 1,000 ML IV SCH (18:53)
[2017-01-14 20:00] VITALS: BP 123/76; PULSE 102; PULSE 104; RESP 18; TEMP 97.3; O2SAT 97
[2017-01-14] MEDS: ACETAMINOPHEN/HYDROcodone 325 MG/5 MG TAB PO PRN (20:12)
[2017-01-14] MEDS: SODIUM CHLORIDE 0.9% FLUSH 10 ML FLUSH IV FLUSH SCH (21:00)
[2017-01-14 22:24] LABS: CREATINE KINASE 54 U/L (26-192)
[2017-01-14] MEDS ORDERED: diphenhydrAMINE HCL 50 MG CAP PO PRN (22:30)
[2017-01-14] MEDS ORDERED: MORPHINE SULFATE 2 MG/ML INJ IV PUSH PRN (23:15)
[2017-01-14] MEDS ORDERED: SODIUM CHLOR 0.9% 1000 ML INJ 1,000 ML IV ONE (23:30)
[2017-01-14 23:33] VITALS: BP 128/81; PULSE 107; RESP 18; TEMP 98.3; O2SAT 96
[2017-01-14 23:53] LABS: LACTIC ACID GHOST NOT REPORTABLE
[2017-01-15] VITALS (8 sets, daily range): BP systolic 109–142; BP diastolic 59–84; PULSE 95–115; RESP 17–19; TEMP 97.4–98.3; O2SAT 96–100
[2017-01-15] MEDS ORDERED: SODIUM CHLOR 0.9% 1000 ML INJ 1,000 ML IV ONE ×2 (00:30→01:30)
[2017-01-15 00:40] LABS: BLOOD, URINE NEG (NEG); GLUCOSE,URINE 1000 mg/dL (NEG); KETONE, URINE 10 mg/dL (NEG); MUCUS URINE FEW /lpf (OCC); NITRITE,URINE NEG (NEG); PH, URINE 5.5 (5.0-8.5); SQUAMOUS EPITHELIAL CELL URINE <1 /hpf (0-5); URINE COLOR YELLOW (YELLW/STRAW)
[2017-01-15] MEDS: ACETAMINOPHEN/HYDROcodone 325 MG/5 MG TAB PO PRN ×5 (00:43→21:06)
[2017-01-15 01:17] LABS: CREATINE KINASE 53 U/L (26-192)
[2017-01-15 01:20] LABS: COMMENT (UR) CULT NOT INDICATED; CULTURE IF INDICATED CULT NOT INDICATED
[2017-01-15] MEDS ORDERED: SODIUM CHLORID 0.9% 500 ML INJ 500 ML IV ONE (02:30)
[2017-01-15] MEDS: SODIUM CHLOR 0.9% 1000 ML INJ 1,000 ML IV SCH ×2 (05:03→14:31)
[2017-01-15 08:03] LABS: AUTOMATED NEUTROPHIL # 11.8 TH/MM3 (1.8-7.7); BASOPHIL % 0.2 % (0.0-2.0); HEMATOCRIT 35.2 % (35.0-46.0); HEMO FLAGS DIFF FINAL; LYMPHOCYTE # 1.7 TH/MM3 (1.0-4.8); MEAN CELL VOLUME 89.2 FL (80.0-100.0); MEAN CORPUSCULAR HEMOGLOBIN 29.9 PG (27.0-34.0); MEAN CORPUSCULAR HGB CONC 33.5 % (32.0-36.0); MONO % 2.1 % (0.0-8.0); NEUT % 85.7 % (16.0-70.0); PLATELET COUNT 231 TH/MM3 (150-450); RED BLOOD COUNT 3.95 MIL/MM3 (4.00-5.30); RED CELL DISTRIBUTION WIDTH 13.1 % (11.6-17.2); WHITE BLOOD COUNT 13.8 TH/MM3 (4.0-11.0)
[2017-01-15 08:29] LABS: BICARBONATE 20.9 MEQ/L (21.0-32.0); POTASSIUM 4.5 MEQ/L (3.5-5.1)
[2017-01-15] MEDS: SODIUM CHLORIDE 0.9% FLUSH 10 ML FLUSH IV FLUSH SCH ×2 (09:00→21:07)
[2017-01-15] MEDS ORDERED: KETOROLAC TROMETHAMINE 30 MG/ML (IVP) VIAL IV PUSH PRN (09:00)
--- NOTE | 2017-01-15 11:45 | HHI.PR ---
Subjective Remarks In bed, appears sleepy. Patient say she has pain and is asking for more pain meds. Per nurse she was asking for morphine for breakthrough pain. She denies any fevers or chills at this time. No cough. Has some chest pain. No n/v/d/c. With tachycardia. BP is normal. Objective Vitals Vital Signs Date Time Temp Pulse Resp B/P (MAP) Pulse Ox O2 Delivery O2 Flow Rate FiO2 01/15/17 08:28 97.4 110 18 142/84 (103) 100 01/15/17 04:00 97.5 106 18 124/79 (94) 100 01/15/17 00:00 98.3 107 18 128/81 (97) 96 01/14/17 23:33 98.3 107 18 128/81 (97) 96 01/14/17 20:00 104 01/14/17 20:00 97.3 102 18 123/76 (92) 97 01/14/17 18:03 98.0 105 22 133/74 (93) 95 01/14/17 17:06 01/14/17 17:04 98.4 105 22 127/61 (83) 97 Room Air 01/14/17 13:55 100 Nasal Cannula 2.00 01/14/17 13:35 98.2 131 20 155/99 (117) 100 I/O 01/14/17 01/14/17 01/14/17 01/15/17 01/15/17 01/15/17 07:00 15:00 23:00 07:00 15:00 23:00 Intake Total 350 ml 4500 ml Balance 350 ml 4500 ml Intake IV Total 350 ml 4500 ml # Voids 2 3 Result Diagram: 01/15/17 0550 01/15/17 [address] Angiography 01/14/17 0000 Signed Impressions: Service Date/Time: Saturday, January 14, 2017 14:42 - CONCLUSION: 1. No pulmonary emboli. 2. Low lung volumes with scattered groundglass opacities. This could relate to infectious etiologies, pulmonary edema, or noninfectious inflammatory processes. Duane Casas Jr., MD Objective Remarks GENERAL: This is a well-nourished, well-developed female patient, in bed appears sleepy. CARDIOVASCULAR: Tachycardic. Without murmurs, gallops, or rubs. RESPIRATORY: Diminished breath sounds in anterior bases. Breath sounds equal bilaterally. No wheezes, rales, or rhonchi. GASTROINTESTINAL: Abdomen soft, non-tender, nondistended. No guarding. MUSCULOSKELETAL: Extremities without clubbing, cyanosis, or edema. No joint tenderness, effusion, or edema noted. NEUROLOGICAL: Awake and alert. Cranial nerves II through XII intact. Motor and sensory grossly within normal limits. Five out of 5 muscle strength in all muscle groups. Normal speech. A/P Problem List: (1) Atypical chest pain ICD Code: R07.89 - Other chest pain Status: Acute (2) Pneumonia ICD Code: J18.9 - Pneumonia, unspecified organism Status: Acute Assessment and Plan Mrs. London is a 31-year-old female patient with a known medical history of PE previously on Eliquis who presented to the ED with complaints of chest pain. Patient states that her chest pain started around noon today as she was sitting at her desk at work, the pain was located in her midsternal chest, denies any radiation of pain, states a 10/10 on pain scale, constant in nature, denies any associated nausea or vomiting or diaphoresis, does admit to associated dyspnea and headache. Patient complaints of worsening pain on inspiration. Atypical chest pain suspect secondary to atypical community-acquired pneumonia Sepsis suspect secondary to above (WBC 14.9, tachycardia, tachypnea, lactic acidosis) on admission. Repeat LA per sepsis protocol. Monitor CBC. CTA reviewed showing no PE. Low lung volumes with scattered ground glass opacities. Serial EKGs and troponins negative. EKG reviewed showing sinus tachycardia. HR 118. No arrhythmias. No ischemic changes. Continue Methylprednisone taper as tolerated . Will give one time dose of Toradol. Morphine IV given in ED. Will have PO pain medications available PRN per pain scale.Will give ketorolac IV for breakthrough pain Supplemental O2 to keep sats >92%. Continue on IVF. NS @ 100 ml/hr. CBC and BMP in am. Follow. BNP 8. Continue cardiac telemetry. Given Azithromycin IV and Cefepime in ED. Will start on Azithromycin IV scheduled for atypical pneumonia. Supportive care. Continue to follow clinically. Blood cultures pending. DVT prophylaxis: SCDs. Discussed with the patient,nurse Problem Qualifiers (1) Pneumonia: Qualified Codes: J18.9 - Pneumonia, unspecified organism Cosma,Loli MD Jan 15, 2017 11:45
--- NOTE | 2017-01-15 14:08 | EKG ---
Date Performed: 01/15/2017 Time Performed: 01:44:38 PTAGE: 31 years EKG: Sinus tachycardia. Normal ECG except for rate PREVIOUS TRACING : 01/14/2017 18.13 Compared to prior tracing no significant change DOCTOR: Matthew Sue Interpretating Date/Time 01/15/2017 14:04:32
--- NOTE | 2017-01-15 14:19 | EKG ---
Date Performed: 01/14/2017 Time Performed: 18:13:50 PTAGE: 31 years EKG: SINUS TACHYCARDIA ABNORMAL RHYTHM ECG PREVIOUS TRACING : 01/14/2017 13.48 Compared to prior tracing no significant change DOCTOR: Matthew Sue Interpretating Date/Time 01/15/2017 14:13:07
--- NOTE | 2017-01-15 14:29 | EKG ---
Date Performed: 01/14/2017 Time Performed: 13:48:06 PTAGE: 31 years EKG: SINUS TACHYCARDIA ABNORMAL RHYTHM ECG PREVIOUS TRACING : 10/10/2016 18.07 DOCTOR: Matthew Sue Interpretating Date/Time 01/15/2017 14:22:49
[2017-01-15 14:58] LABS: LACTIC ACID GHOST NOT REPORTABLE
[2017-01-15] MEDS: AZITHROMYCIN INJ 500 MG in SODIUM CHLOR 0.9% 250 ML INJ 250 ML IV SCH (16:27)
[2017-01-15] MEDS ORDERED: CYCLOBENZAPRINE HCL 10 MG TAB PO PRN (19:15)
--- NOTE | 2017-01-15 21:17 | RADRPT ---
EXAM DATE/TIME: 01/15/2017 19:52 [facility] COMPARISON: No previous studies available for comparison. INDICATIONS : Left lower back pain after falling in her hospital room today. MEDICAL HISTORY : Deep venous thrombosis. Pulmonary embolism. SURGICAL HISTORY : Cholecystectomy. ENCOUNTER: Initial ACUITY: 1 day PAIN SCORE: 10/10 LOCATION: Left lower back pain that radiates into left leg. FINDINGS: Two view examination was performed. There are five non-rib bearing vertebral bodies. The vertebral bodies are in normal alignment without evidence of subluxation or scoliosis. There is mild disc spac e narrowing at the L1-L2 level and moderate disc space narrowing at the L4-L5 level. The pedicles ar e intact. Bony mineralization is normal. No fracture is identified. CONCLUSION: Disc space narrowing at the L1-L2 and L4-L5 levels. Kirk Downs MD on January 15, 2017 at 21:14 Board Certified Radiologist. This report was verified electronically.
[2017-01-16 00:15] VITALS: BP 120/75; PULSE 89; RESP 18; TEMP 98; O2SAT 100
[2017-01-16] MEDS: ACETAMINOPHEN/HYDROcodone 325 MG/5 MG TAB PO PRN ×2 (02:08→06:50)
[2017-01-16 08:45] VITALS: BP 119/78; PULSE 90; RESP 18; TEMP 98; O2SAT 100
[2017-01-16 08:49] LABS: AUTOMATED NEUTROPHIL # 6.6 TH/MM3 (1.8-7.7); BASOPHIL # 0.1 TH/MM3 (0-0.2); BASOPHIL % 0.7 % (0.0-2.0); EOSINOPHIL # 0.2 TH/MM3 (0-0.4); EOSINOPHIL % 1.4 % (0.0-4.0); HEMATOCRIT 36.9 % (35.0-46.0); LYMPH % 40.2 % (9.0-44.0); LYMPHOCYTE # 5.2 TH/MM3 (1.0-4.8); MEAN CORPUSCULAR HEMOGLOBIN 29.5 PG (27.0-34.0); MEAN CORPUSCULAR HGB CONC 33.1 % (32.0-36.0); MONO % 7.3 % (0.0-8.0); NEUT % 50.4 % (16.0-70.0); PLATELET COUNT 254 TH/MM3 (150-450); RED BLOOD COUNT 4.15 MIL/MM3 (4.00-5.30); RED CELL DISTRIBUTION WIDTH 13.2 % (11.6-17.2)
[2017-01-16] MEDS: SODIUM CHLORIDE 0.9% FLUSH 10 ML FLUSH IV FLUSH SCH ×2 (09:00→20:43)
[2017-01-16 09:01] LABS: HEMO FLAGS AUTO DIFF
[2017-01-16 09:11] LABS: BICARBONATE 25.9 MEQ/L (21.0-32.0); POTASSIUM 3.9 MEQ/L (3.5-5.1)
--- NOTE | 2017-01-16 09:31 | HHI.PR ---
Subjective Remarks In nad, says she has some pain in her back but was able to ambulate. No fever or chills. No coughing. Denies chest pain or sob. Objective Vitals Vital Signs Date Time Temp Pulse Resp B/P (MAP) Pulse Ox O2 Delivery O2 Flow Rate FiO2 01/16/17 08:45 98.0 90 18 119/78 (92) 100 01/16/17 00:15 98.0 89 18 120/75 (90) 100 01/15/17 20:45 98.1 95 17 124/72 (89) 100 01/15/17 18:38 97.4 101 19 128/84 (99) 97 01/15/17 15:50 98.2 99 18 109/59 (76) 97 01/15/17 11:53 97.7 110 18 136/72 (93) 98 I/O 01/15/17 01/15/17 01/15/17 01/16/17 01/16/17 01/16/17 07:00 15:00 23:00 07:00 15:00 23:00 Intake Total 4500 ml 1960 ml 600 ml Balance 4500 ml 1960 ml 600 ml Intake Oral 1960 ml 600 ml IV Total 4500 ml # Voids 2 3 7 2 # Bowel Movements 0 1 Result Diagram: 01/16/17 0818 01/16/17 0818 Imaging Last Impressions Lumbar Spine X-Ray 01/15/17 0000 Signed Impressions: Service Date/Time: Sunday, January 15, 2017 19:52 - CONCLUSION: Disc space narrowing at the L1-L2 and L4-L5 levels. Kirk Downs MD CT Angiography 01/14/17 0000 Signed Impressions: Service Date/Time: Saturday, January 14, 2017 14:42 - CONCLUSION: 1. No pulmonary emboli. 2. Low lung volumes with scattered groundglass opacities. This could relate to infectious etiologies, pulmonary edema, or noninfectious inflammatory processes. Duane Casas Jr., MD Objective Remarks GENERAL: This is a well-nourished, well-developed female patient, in bed appears sleepy. CARDIOVASCULAR: Tachycardic. Without murmurs, gallops, or rubs. RESPIRATORY: Diminished breath sounds in anterior bases. Breath sounds equal bilaterally. No wheezes, rales, or rhonchi. GASTROINTESTINAL: Abdomen soft, non-tender, nondistended. No guarding. MUSCULOSKELETAL: Extremities without clubbing, cyanosis, or edema. No joint tenderness, effusion, or edema noted. NEUROLOGICAL: Awake and alert. Cranial nerves II through XII intact. Motor and sensory grossly within normal limits. Five out of 5 muscle strength in all muscle groups. Normal speech. A/P Problem List: (1) Atypical chest pain ICD Code: R07.89 - Other chest pain Status: Acute (2) Pneumonia ICD Code: J18.9 - Pneumonia, unspecified organism Status: Acute Assessment and Plan Mrs. London is a 31-year-old female patient with a known medical history of PE previously on Eliquis who presented to the ED with complaints of chest pain. Patient states that her chest pain started around noon today as she was sitting at her desk at work, the pain was located in her midsternal chest, denies any radiation of pain, states a 10/10 on pain scale, constant in nature, denies any associated nausea or vomiting or diaphoresis, does admit to associated dyspnea and headache. Patient complaints of worsening pain on inspiration. Atypical chest pain suspect secondary to atypical community-acquired pneumonia Sepsis suspect secondary to above (WBC 14.9, tachycardia, tachypnea, lactic acidosis) on admission. Repeat LA per sepsis protocol. Monitor CBC. CTA reviewed showing no PE. Low lung volumes with scattered ground glass opacities. Serial EKGs and troponins negative. EKG reviewed showing sinus tachycardia. HR 118. No arrhythmias. No ischemic changes. Continue Methylprednisone taper as tolerated . Will give one time dose of Toradol. Morphine IV given in ED. Will have PO pain medications available PRN per pain scale.Will give ketorolac IV for breakthrough pain Supplemental O2 to keep sats >92%. Continue on IVF. NS @ 100 ml/hr. CBC and BMP in am. Follow. BNP 8. Continue cardiac telemetry. Given Azithromycin IV and Cefepime in ED. Will start on Azithromycin IV scheduled for atypical pneumonia. Supportive care. Continue to follow clinically. Blood cultures NTD depression consult psych appreciate recommendations. 01/15/17 fell in the room complaint of back pain . Xray of lower back reviewed no fracture. Shows L1-L2 narrowing and also L4-L5 narrowing. Will consult neurosurgery for evaluation. [place] PO per pain scale. Monitor VS . Give flexeryl. DVT prophylaxis: SCDs. Discussed with the patient, nurse, family at bedside Poss DC tomorrow if cleared by neurosurgery Problem Qualifiers (1) Pneumonia: Qualified Codes: J18.9 - Pneumonia, unspecified organism Loli Segundo MD Jan 16, 2017 09:30
[2017-01-16] MEDS: SODIUM CHLOR 0.9% 1000 ML INJ 1,000 ML IV SCH ×3 (09:56→20:00)
[2017-01-16] MEDS: ACETAMINOPHEN/HYDROcodone 325 MG/10 MG TAB PO PRN ×4 (09:58→22:58)
[2017-01-16 10:15] LABS: BANDS 1 % (0-6); NEUTROPHIL # MANUAL DIFF 6.6 TH/MM3 (1.8-7.7); PLATELET ESTIMATE SMEAR NORMAL (NORMAL); PLATELET MORPHOLOGY NORMAL (NORMAL); POLYS (SEG NEUTROPHILS) 50 % (16-70); SCAN/DIFF FINAL DIFF MANUAL; WBC DIFF SAMPLE 100
[2017-01-16 10:26] VITALS: PULSE 80
--- NOTE | 2017-01-16 10:54 | PD.PSY.CON ---
Provisional Diagnosis Admission Date Jan 14, 2017 at 16:29 [place] I. Adjustment disorder with depressed mood, history of bipolar disorder [place] II. Deferred [place] III. Pneumonia History of Present Illness Service Psychiatry Consult Requested By Dr. Segundo Reason for Consult Adjustment Primary Care Physician No Primary Care Physician HPI The patient is a 31-year-old woman, with her fianc in [facility], employed, with self-reported psychiatric history of bipolar disorder, about 3 hospitalizations in her adolescence, 1 previous suicide attempts, she has been in remission for several years, no psychotropics at that moment, denies the use of substances, with a known medical history of PE previously on Eliquis who presented to the ED with complaints of chest pain. Patient states that her chest pain started around noon today as she was sitting at her desk at work, the pain was located in her midsternal chest, denies any radiation of pain, states a 10/10 on pain scale, constant in nature, denies any associated nausea or vomiting or diaphoresis, does admit to associated dyspnea and headache. Patient complaints of worsening pain on inspiration. Admitted in the medical floor due to Atypical chest pain suspect secondary to atypical community- acquired pneumonia. Sepsis suspect secondary to above (WBC 14.9, tachycardia, tachypnea, lactic acidosis) on admission. Repeat LA per sepsis protocol. Monitor CBC. On psychiatric evaluation today patient is calm, cooperative, stating that she is on pain because she felt last night and hit her right leg. He reports that other than pain, her mood is okay, she denies depressive symptoms, she denies anhedonia, hopelessness, helplessness, she denies suicidal or homicidal ideation, she denies visual and auditory hallucinations. Patient says that she was diagnosed with bipolar disorder at age 16 when she was having a lot of stressors in her life. Patient was hospitalized 2 or 3 times due to suicidal ideation, but she was stabilized and since then she has not need psychiatric care. Patient is oriented 3, logical, coherent and relevant. She denies the use of alcohol and illicit drugs. Review of Systems Constitutional: DENIES: Diaphoretic episodes, Fatigue, Fever, Weight gain, Weight loss, Chills, Dizziness, Change in appetite, Night Sweats Endocrine: DENIES: Abnorml menstrual pattern, Heat/cold intolerance, Polydipsia , Polyuria, Polyphagia Eyes: DENIES: Blurred vision, Diplopia, Eye inflammation, Eye pain, Vision loss , Photosensitivity, Double Vision Ears, nose, mouth, throat: DENIES: Tinnitus, Hearing loss, Vertigo, Nasal discharge, Oral lesions, Throat pain, Hoarseness, Ear Pain, Running Nose, Epistaxis, Sinus Pain, Toothache, Odynophagia Respiratory: DENIES: Apneas, Cough, Snoring, Wheezing, Hemoptysis, Sputum production, Shortness of breath Gastrointestinal: DENIES: Abdominal pain, Black stools, Bloody stools, Constipation, Diarrhea, Nausea, Vomiting, Difficulty Swallowing, Anorexia Genitourinary: DENIES: Abnormal vaginal bleeding, Dysmenorrhea, Dyspareunia, Sexual dysfunction, Urinary frequency, Urinary incontinence, Urgency, Hematuria , Dysuria, Nocturia, Vaginal discharge Musculoskeletal: COMPLAINS OF: Joint pain, Back pain Integumentary: DENIES: Abnormal pigmentation, Pruritus, Rash, Nail changes, Breast masses, Breast skin changes, Nipple discharge Hematologic/lymphatic: DENIES: Bruising, Lymphadenopathy Immunologic/allergic: DENIES: Eczema, Urticaria Neurologic: DENIES: Abnormal gait, Headache, Localized weakness, Paresthesias, Seizures, Speech Problems, Tremor, Poor Balance Psychiatric: DENIES: Anxiety, Confusion, Mood changes, Depression, Hallucinations, Agitation, Suicidal Ideation, Homicidal Ideation, Delusions Past Family Social History Coded Allergies: latex (Unverified Allergy, Intermediate, RASH/SWELLING, 01/14/17) No Active Prescriptions or Reported Meds Current Medications Medications (Trade) Dose Ordered Sig/Keven Route Start Time Stop Time Status Last Admin (NS Flush) 2 ml UNSCH PRN IV FLUSH 01/14/17 16:30 (NS Flush) 2 ml BID IV FLUSH 01/14/17 21:00 01/16/17 09:00 (Narcan Inj) 0.4 mg UNSCH PRN IV PUSH 01/14/17 16:30 Sodium Chloride 1,000 ml @ 100 mls/hr Q10H IV 01/14/17 18:00 01/15/17 05:03 Azithromycin 500 mg/Sodium Chloride 250 ml @ 250 mls/hr Q24H IV 01/15/17 16:00 01/15/17 16:27 ([place] 5-325 Mg) 1 tab Q4H PRN PO 01/14/17 18:00 01/16/17 06:50 (Benadryl) 50 mg HS PRN PO 01/14/17 22:30 (Morphine Inj) 4 mg ONCE PRN IV PUSH 01/14/17 23:15 01/20/17 23:14 01/14/17 23:42 (Toradol Inj) 30 mg Q6H PRN IV PUSH 01/15/17 09:00 01/20/17 08:59 (Flexeril) 5 mg Q8H PRN PO 01/15/17 19:15 ([place] 10-325 Mg) 1 tab Q4H PRN PO 01/16/17 09:45 01/16/17 09:58 Family Psych History her father is bipolar Social History Patient was born and raised in [facility], she lives in [facility] with her fianc, she has 3 kids, employed, highest level of education is high school Patient's Strengths (min. 2) Family support Physical Exam Vital Signs Vital Signs Date Time Temp Pulse Resp B/P (MAP) Pulse Ox O2 Delivery O2 Flow Rate FiO2 01/16/17 10:26 80 01/16/17 08:45 98.0 18 119/78 (92) 100 01/14/17 17:04 Room Air 01/14/17 13:55 2.00 I/O 01/16/17 01/16/17 01/17/17 08:00 16:00 00:00 Intake Total 600 ml Balance 600 ml Lab Results Test 01/15/17 12:40 01/15/17 15:42 01/16/17 08:18 Lactic Acid Level 4.0 mmol/L 2.8 mmol/L White Blood Count 13.0 TH/MM3 Red Blood Count 4.15 MIL/MM3 Hemoglobin 12.2 GM/DL Hematocrit 36.9 % Mean Corpuscular Volume 89.0 FL Mean Corpuscular Hemoglobin 29.5 PG Mean Corpuscular Hemoglobin Concent 33.1 % Red Cell Distribution Width 13.2 % Platelet Count 254 TH/MM3 Mean Platelet Volume 7.7 FL Neutrophils (%) (Auto) 50.4 % Lymphocytes (%) (Auto) 40.2 % Monocytes (%) (Auto) 7.3 % Eosinophils (%) (Auto) 1.4 % Basophils (%) (Auto) 0.7 % Neutrophils # (Auto) 6.6 TH/MM3 Lymphocytes # (Auto) 5.2 TH/MM3 Monocytes # (Auto) 0.9 TH/MM3 Eosinophils # (Auto) 0.2 TH/MM3 Basophils # (Auto) 0.1 TH/MM3 CBC Comment AUTO DIFF Differential Total Cells Counted 100 Neutrophils % (Manual) 50 % Band Neutrophils % 1 % Lymphocytes % 46 % Monocytes % 3 % Neutrophils # (Manual) 6.6 TH/MM3 Differential Comment FINAL DIFF MANUAL Platelet Estimate NORMAL Platelet Morphology Comment NORMAL Red Cell Morphology Comment NORMAL Blood Urea Nitrogen 14 MG/DL Creatinine 0.80 MG/DL Random Glucose 118 MG/DL Calcium Level 8.6 MG/DL Sodium Level 139 MEQ/L Potassium Level 3.9 MEQ/L Chloride Level 106 MEQ/L Carbon Dioxide Level 25.9 MEQ/L Anion Gap 7 MEQ/L Estimat Glomerular Filtration Rate 83 ML/MIN Date/Time Source Procedure Growth Status 01/15/17 00:30 Blood Peripheral Aerobic Blood Culture Pending Received 01/15/17 00:30 Blood Peripheral Anaerobic Blood Culture Pending Received Mental Status Examination Appearance: Appropriate Consciousness: Alert Orientation: x4 Motor Activity: Normal gait Speech: Unremarkable Language: Adequate Fund of Knowledge: Adequate Attention and Concentration: Adequate Memory: Unremarkable Mood: Appropriate Affect: Appropriate Thought Process & Associations: Intact Thought Content: Appropriate Hallucination Type: None Delusion Type: None Suicidal Ideation: No Suicidal Plan: No Suicidal Intention: No Homicidal Ideation: No Homicidal Plan: No Homicidal Intention: No Insight: Adequate Judgment: Adequate Assessment & Plan Problem List: (1) Adjustment disorder with depressed mood ICD Codes: F43.21 - Adjustment disorder with depressed mood Assessment & Plan: On psychiatric evaluation today there is not evidence of significant depression, anxiety, reyes or psychosis. Denies suicidal and homicidal ideation, she denies visual and auditory hallucinations. She is mostly focused in medical complaints, especially in pain. Secondary gain is no clear in this patient, at least during this evaluation. She does not meet criteria for psychiatric admission at this moment. Brief supportive psychotherapy provided. Consult appreciated. Assessment & Plan Estimated LOS: Gavin Cote MD Jan 16, 2017 10:54
[2017-01-16 11:39] VITALS: BP 129/76; PULSE 100; RESP 18; TEMP 97.6; O2SAT 98
[2017-01-16] MEDS: AZITHROMYCIN INJ 500 MG in SODIUM CHLOR 0.9% 250 ML INJ 250 ML IV SCH (15:32)
[2017-01-16 16:30] VITALS: BP 110/70; PULSE 92; RESP 18; TEMP 98.1; O2SAT 99
--- NOTE | 2017-01-16 16:43 | HHI.DS ---
Discharge Summary Admission Date Jan 14, 2017 at 16:29 Discharge Date: Jan 17, 2017 Admitting Diagnosis PNA (1) Atypical chest pain ICD Code: R07.89 - Other chest pain Status: Acute (2) Pneumonia ICD Code: J18.9 - Pneumonia, unspecified organism Status: Acute Procedures none Brief History - From Admission Mrs. London is a 31-year-old female patient with a known medical history of PE previously on Eliquis who presented to the ED with complaints of chest pain. Patient states that her chest pain started around noon today as she was sitting at her desk at work, the pain was located in her midsternal chest, denies any radiation of pain, states a 10/10 on pain scale, constant in nature, denies any associated nausea or vomiting or diaphoresis, does admit to associated dyspnea and headache. Patient complaints of worsening pain on inspiration. Pain has been constant for over 5 hours with mild relief of pain medications. Patient does report a history of PE and her MD has recently stopped her Eliquis 2 months ago. Denies any recent fever, chills, cough, dizziness, shortness of breath, abdominal pain, nausea, vomiting, diarrhea or dysuria. CBC/BMP: 01/16/17 0818 01/16/17 0818 Significant Findings Laboratory Tests Test 01/14/17 13:50 01/14/17 16:00 01/14/17 16:10 01/14/17 21:26 White Blood Count 14.9 TH/MM3 (4.0-11.0) Neutrophils # (Auto) 8.7 TH/MM3 (1.8-7.7) Lymphocytes # (Auto) 4.9 TH/MM3 (1.0-4.8) Random Glucose 126 MG/DL (74-106) Albumin 3.3 GM/DL (3.4-5.0) Aspartate Amino Transf (AST/SGOT) 13 U/L (15-37) Sodium Level 135 MEQ/L (136-145) Estimat Glomerular Filtration Rate 79 ML/MIN (>89) Troponin I LESS THAN 0.02 NG/ML LESS THAN 0.02 NG/ML Lactic Acid Level 2.2 mmol/L (0.4-2.0) Test 01/14/17 21:40 01/15/17 00:15 01/15/17 00:25 01/15/17 05:50 Lactic Acid Level 4.7 mmol/L (0.4-2.0) 4.1 mmol/L (0.4-2.0) Urine Specific [place] 1.041 (1.002-1.035) Urine Glucose (UA) 1000 mg/dL (NEG) Urine Ketones 10 mg/dL (NEG) Urine Mucus FEW /lpf (OCC) Troponin I LESS THAN 0.02 NG/ML White Blood Count 13.8 TH/MM3 (4.0-11.0) Red Blood Count 3.95 MIL/MM3 (4.00-5.30) Neutrophils (%) (Auto) 85.7 % (16.0-70.0) Neutrophils # (Auto) 11.8 TH/MM3 (1.8-7.7) Random Glucose 157 MG/DL (74-106) Calcium Level 7.9 MG/DL (8.5-10.1) Chloride Level 110 MEQ/L (98-107) Carbon Dioxide Level 20.9 MEQ/L (21.0-32.0) Estimat Glomerular Filtration Rate 82 ML/MIN (>89) Test 01/15/17 12:40 01/15/17 15:42 01/16/17 08:18 Lactic Acid Level 4.0 mmol/L (0.4-2.0) 2.8 mmol/L (0.4-2.0) White Blood Count 13.0 TH/MM3 (4.0-11.0) Lymphocytes # (Auto) 5.2 TH/MM3 (1.0-4.8) Lymphocytes % 46 % (9-44) Random Glucose 118 MG/DL (74-106) Estimat Glomerular Filtration Rate 83 ML/MIN (>89) Imaging Last Impressions Lumbar Spine X-Ray 01/15/17 0000 Signed Impressions: Service Date/Time: Sunday, January 15, 2017 19:52 - CONCLUSION: Disc space narrowing at the L1-L2 and L4-L5 levels. Kirk Downs MD CT Angiography 01/14/17 0000 Signed Impressions: Service Date/Time: Saturday, January 14, 2017 14:42 - CONCLUSION: 1. No pulmonary emboli. 2. Low lung volumes with scattered groundglass opacities. This could relate to infectious etiologies, pulmonary edema, or noninfectious inflammatory processes. Duane Casas Jr., MD PE at Discharge GENERAL: This is a well-nourished, well-developed female patient, in bed appears sleepy. CARDIOVASCULAR: Tachycardic. Without murmurs, gallops, or rubs. RESPIRATORY: Diminished breath sounds in anterior bases. Breath sounds equal bilaterally. No wheezes, rales, or rhonchi. GASTROINTESTINAL: Abdomen soft, non-tender, nondistended. No guarding. MUSCULOSKELETAL: Extremities without clubbing, cyanosis, or edema. No joint tenderness, effusion, or edema noted. NEUROLOGICAL: Awake and alert. Cranial nerves II through XII intact. Motor and sensory grossly within normal limits. Five out of 5 muscle strength in all muscle groups. Normal speech. Hospital Course Mrs. London is a 31-year-old female patient with a known medical history of PE previously on Eliquis who presented to the ED with complaints of chest pain. Patient states that her chest pain started around noon today as she was sitting at her desk at work, the pain was located in her midsternal chest, denies any radiation of pain, states a 10/10 on pain scale, constant in nature, denies any associated nausea or vomiting or diaphoresis, does admit to associated dyspnea and headache. Patient complaints of worsening pain on inspiration. Atypical chest pain suspect secondary to atypical community-acquired pneumonia Sepsis suspect secondary to above (WBC 14.9, tachycardia, tachypnea, lactic acidosis) on admission. Repeat LA per sepsis protocol. Monitor CBC. CTA reviewed showing no PE. Low lung volumes with scattered ground glass opacities. Serial EKGs and troponins negative. EKG reviewed showing sinus tachycardia. HR 118. No arrhythmias. No ischemic changes. Continue Methylprednisone taper as tolerated . Will give one time dose of Toradol. Morphine IV given in ED. Will have PO pain medications available PRN per pain scale.Will give ketorolac IV for breakthrough pain Supplemental O2 to keep sats >92%. Continue on IVF. NS @ 100 ml/hr. CBC and BMP in am. Follow. BNP 8. Continue cardiac telemetry. Given Azithromycin IV and Cefepime in ED. Will start on Azithromycin IV scheduled for atypical pneumonia. Supportive care. Continue to follow clinically. Blood cultures NTD depression consult psych appreciate recommendations. 01/15/17 fell in the room complaint of back pain . Xray of lower back reviewed no fracture. Shows L1-L2 narrowing and also L4-L5 narrowing. Will consult neurosurgery for evaluation. [place] PO per pain scale. Monitor VS . Give flexeryl. MRI reviewed no discitis. MRI findings reviewed by Dr Mcclure as well and recommends to follow up as OP . Patient can be discharged today. DVT prophylaxis: SCDs. Discussed with the patient, nurse, family at bedside Patient improved, to follow up as OP with PCP and consultants. Pt Condition on Discharge: Stable Discharge Disposition: Discharge Home Discharge Time: > 30 minutes Discharge Instructions DIET: Follow Instructions for: As Tolerated, No Restrictions Activities you can perform: Regular-No Restrictions Follow up Referrals: Neurosurgery - 2 Weeks with Wander Mcclure MD PCP Follow-up - 2-3 Days New Medications: Azithromycin (Azithromycin) 250 Mg Tab 250 MG PO DAILY for Infection, #2 TAB 0 Refills Hydrocodone-Acetaminophen ([place]) 5 Mg-325 Mg Tab 1 TAB PO Q6H PRN for PAIN, #15 TAB 0 Refills Lactobacillus Acidophilus (Lactinex) 1 Chew 1 TAB CHEW DAILY for Nutritional Supplement, #30 TAB 0 Refills Cyclobenzaprine (Flexeril) 10 Mg Tab 5 MG PO Q8H PRN for muscle spasm /back pain , #15 TAB Loli Segundo MD Jan 16, 2017 16:43
[2017-01-16] MEDS ORDERED: NORC5TAB PO (16:45)
[2017-01-16] MEDS ORDERED: CYCL10TA PO (16:45)
[2017-01-16] MEDS ORDERED: AZIT250T3 PO (16:46)
--- NOTE | 2017-01-16 20:09 | PD.CONS ---
History of Present Illness Service Neurosurgery Consult Requested By 31-year-old female presented to the emergency room on 1113 with complaint of chest pain. She has a history of pulmonary embolus, on Eliquis. She underwent a CT angiogram which did not reveal any acute pulmonary embolus. Her EKG did not reveal any significant acute changes. Troponin within normal limits. She was placed on cardiac telemetry. She was started on azithromycin for atypical pneumonia. The patient reportedly fell in her room on 01/15/17, complaining of low back pain. A lumbar spine x-ray on 01/15/17 revealed disc space narrowing at the L1-2 and L4-5 levels without fracture or subluxation noted. 01/15/17 blood cultures are no growth at 24 hours on 01/16/17. Primary Care Physician No Primary Care Physician Diagnoses: Past Family Social History Allergies: Coded Allergies: latex (Unverified Allergy, Intermediate, RASH/SWELLING, 01/14/17) Physical Exam Vital Signs Vital Signs Date Time Temp Pulse Resp B/P (MAP) Pulse Ox O2 Delivery O2 Flow Rate FiO2 01/16/17 16:30 98.1 92 18 110/70 (83) 99 01/16/17 11:39 97.6 100 18 129/76 (93) 98 01/16/17 10:26 80 01/16/17 08:45 98.0 90 18 119/78 (92) 100 01/16/17 00:15 98.0 89 18 120/75 (90) 100 01/15/17 20:45 98.1 95 17 124/72 (89) 100 Physical Exam Patient is in the bathroom with the door lock when I entered the room. She asked that I come back tomorrow to examine her. Laboratory Laboratory Tests Test 01/16/17 08:18 White Blood Count 13.0 Red Blood Count 4.15 Hemoglobin 12.2 Hematocrit 36.9 Mean Corpuscular Volume 89.0 Mean Corpuscular Hemoglobin 29.5 Mean Corpuscular Hemoglobin Concent 33.1 Red Cell Distribution Width 13.2 Platelet Count 254 Mean Platelet Volume 7.7 Neutrophils (%) (Auto) 50.4 Lymphocytes (%) (Auto) 40.2 Monocytes (%) (Auto) 7.3 Eosinophils (%) (Auto) 1.4 Basophils (%) (Auto) 0.7 Neutrophils # (Auto) 6.6 Lymphocytes # (Auto) 5.2 Monocytes # (Auto) 0.9 Eosinophils # (Auto) 0.2 Basophils # (Auto) 0.1 CBC Comment AUTO DIFF Differential Total Cells Counted 100 Neutrophils % (Manual) 50 Band Neutrophils % 1 Lymphocytes % 46 Monocytes % 3 Neutrophils # (Manual) 6.6 Differential Comment FINAL DIFF MANUAL Platelet Estimate NORMAL Platelet Morphology Comment NORMAL Red Cell Morphology Comment NORMAL Blood Urea Nitrogen 14 Creatinine 0.80 Random Glucose 118 Calcium Level 8.6 Sodium Level 139 Potassium Level 3.9 Chloride Level 106 Carbon Dioxide Level 25.9 Anion Gap 7 Estimat Glomerular Filtration Rate 83 Date/Time Source Procedure Growth Status 01/15/17 00:30 Blood Peripheral Aerobic Blood Culture - Preliminary NO GROWTH IN 1 DAY Resulted 01/15/17 00:30 Blood Peripheral Anaerobic Blood Culture - Preliminary NO GROWTH IN 1 DAY Resulted Result Diagram: 01/16/17 0818 01/16/17 0818 Imaging 01/15/17 lumbar spine x-ray images reviewed. Agree with findings as below: Lumbar Spine X-Ray 01/15/17 0000 Signed Impressions: Service Date/Time: Sunday, January 15, 2017 19:52 - CONCLUSION: Disc space narrowing at the L1-L2 and L4-L5 levels. Kirk Downs MD CT Angiography 01/14/17 0000 Signed Impressions: Service Date/Time: Saturday, January 14, 2017 14:42 - CONCLUSION: 1. No pulmonary emboli. 2. Low lung volumes with scattered groundglass opacities. This could relate to infectious etiologies, pulmonary edema, or noninfectious inflammatory processes. Duane Casas Jr., MD Assessment and Plan Assessment and Plan Impression: 1. Increased low back pain following recent alleged fall in the hospital. 2. Lumbar degenerative disc disease Recommendations: Due to her elevated white count, some loss of intervertebral disc space and low back symptoms, MRI of the lumbar spine with and without contrast will be requested due to increased suspicion for lumbar discitis . Wander Mcclure MD Jan 16, 2017 20:09
[2017-01-16 20:24] VITALS: BP 102/55; PULSE 91; RESP 17; TEMP 97.9; O2SAT 98
[2017-01-17 00:14] VITALS: BP 136/62; PULSE 103; RESP 17; TEMP 97.9; O2SAT 97
[2017-01-17] MEDS: ACETAMINOPHEN/HYDROcodone 325 MG/10 MG TAB PO PRN ×4 (03:08→16:54)
[2017-01-17 04:36] VITALS: PULSE 87
[2017-01-17] MEDS: SODIUM CHLOR 0.9% 1000 ML INJ 1,000 ML IV SCH ×2 (05:37→16:00)
[2017-01-17 07:39] VITALS: BP 106/55; PULSE 90; RESP 20; TEMP 97.8; O2SAT 98
[2017-01-17] MEDS: SODIUM CHLORIDE 0.9% FLUSH 10 ML FLUSH IV FLUSH SCH (08:16)
[2017-01-17 09:27] VITALS: PULSE 82
--- NOTE | 2017-01-17 10:23 | HHI.PR ---
Subjective Remarks No cough. Feels better today satting well on room air. No n/v/d/c. Denies chest pain . Has some back pain however is controlled by meds. Objective Vitals Vital Signs Date Time Temp Pulse Resp B/P (MAP) Pulse Ox O2 Delivery O2 Flow Rate FiO2 01/17/17 09:27 82 01/17/17 07:39 97.8 90 20 106/55 (72) 98 01/17/17 04:36 87 01/17/17 00:14 97.9 103 17 136/62 (86) 97 01/16/17 20:24 97.9 91 17 102/55 (71) 98 01/16/17 16:30 98.1 92 18 110/70 (83) 99 01/16/17 11:39 97.6 100 18 129/76 (93) 98 01/16/17 10:26 80 I/O 01/16/17 01/16/17 01/16/17 01/17/17 01/17/17 01/17/17 07:00 15:00 23:00 07:00 15:00 23:00 Intake Total 600 ml 480 ml 480 ml Balance 600 ml 480 ml 480 ml Intake Oral 600 ml 480 ml 480 ml # Voids 2 1 3 4 # Bowel Movements 1 Result Diagram: 01/16/1718 01/16/1718 Imaging Last Impressions Lumbar Spine MRI 01/17/17 0000 Signed Impressions: Service Date/Time: January 11:21 - CONCLUSION: 1. There is no evidence to indicate acute bony fracture. 2. There is disc dehydration with disc space narrowing at L1-2, L3-4 and L4-5. 3. Focal mild central bulging L3- 4. 4. Mild diffuse broad-based bulging L4-5. Silvino Mendoza MD Lumbar Spine X-Ray 01/15/17 0000 Signed Impressions: Service Date/Time: Sunday, January 15, 2017 19:52 - CONCLUSION: Disc space narrowing at the L1-L2 and L4-L5 levels. Kirk Downs MD CT Angiography 01/14/17 0000 Signed Impressions: Service Date/Time: Saturday, January 14, 2017 14:42 - CONCLUSION: 1. No pulmonary emboli. 2. Low lung volumes with scattered groundglass opacities. This could relate to infectious etiologies, pulmonary edema, or noninfectious inflammatory processes. Duane Cassa Jr., MD Objective Remarks GENERAL: This is a well-nourished, well-developed female patient, in bed appears sleepy. CARDIOVASCULAR: Tachycardic. Without murmurs, gallops, or rubs. RESPIRATORY: Diminished breath sounds in anterior bases. Breath sounds equal bilaterally. No wheezes, rales, or rhonchi. GASTROINTESTINAL: Abdomen soft, non-tender, nondistended. No guarding. MUSCULOSKELETAL: Extremities without clubbing, cyanosis, or edema. No joint tenderness, effusion, or edema noted. NEUROLOGICAL: Awake and alert. Cranial nerves II through XII intact. Motor and sensory grossly within normal limits. Five out of 5 muscle strength in all muscle groups. Normal speech. Procedures none A/P Problem List: (1) Atypical chest pain ICD Code: R07.89 - Other chest pain Status: Acute (2) Pneumonia ICD Code: J18.9 - Pneumonia, unspecified organism Status: Acute Assessment and Plan Mrs. London is a 31-year-old female patient with a known medical history of PE previously on Eliquis who presented to the ED with complaints of chest pain. Patient states that her chest pain started around noon today as she was sitting at her desk at work, the pain was located in her midsternal chest, denies any radiation of pain, states a 10/10 on pain scale, constant in nature, denies any associated nausea or vomiting or diaphoresis, does admit to associated dyspnea and headache. Patient complaints of worsening pain on inspiration. Atypical chest pain suspect secondary to atypical community-acquired pneumonia Sepsis suspect secondary to above (WBC 14.9, tachycardia, tachypnea, lactic acidosis) on admission. Repeat LA per sepsis protocol. Monitor CBC. CTA reviewed showing no PE. Low lung volumes with scattered ground glass opacities. Serial EKGs and troponins negative. EKG reviewed showing sinus tachycardia. HR 118. No arrhythmias. No ischemic changes. Continue Methylprednisone taper as tolerated . Will give one time dose of Toradol. Morphine IV given in ED. Will have PO pain medications available PRN per pain scale.Will give ketorolac IV for breakthrough pain Supplemental O2 to keep sats >92%. Continue on IVF. NS @ 100 ml/hr. CBC and BMP in am. Follow. BNP 8. Continue cardiac telemetry. Given Azithromycin IV and Cefepime in ED. Will start on Azithromycin IV scheduled for atypical pneumonia. Supportive care. Continue to follow clinically. Blood cultures NTD Depression consult psych appreciate recommendations. 01/15/17 fell in the room complaint of back pain . Xray of lower back reviewed no fracture. Shows L1-L2 narrowing and also L4-L5 narrowing. Will consult neurosurgery for evaluation. [place] PO per pain scale. Monitor VS . Give flexeryl. Seen by neurosurgery recommends MRI of the lumbar area to r/o discitis. DVT prophylaxis: SCDs. Discussed with the patient, nurse, family at bedside DC when cleared by neurosurgery Problem Qualifiers (1) Pneumonia: Qualified Codes: J18.9 - Pneumonia, unspecified organism Loli Segundo MD Jan 17, 2017 10:23
[2017-01-17] MEDS ORDERED: LORazepam 2 MG/ML VIAL IV PUSH ONE (10:30)
--- NOTE | 2017-01-17 11:09 | HHI.NSPN ---
History Chief Complaint: Low back and left hip pain. Interval History 01/16: 31-year-old female presented to the emergency room on 1113 with complaint of chest pain. She has a history of pulmonary embolus, on Eliquis. She underwent a CT angiogram which did not reveal any acute pulmonary embolus. Her EKG did not reveal any significant acute changes. Troponin within normal limits. She was placed on cardiac telemetry. She was started on azithromycin for atypical pneumonia. The patient reportedly fell in her room on 01/15/17, complaining of low back pain. A lumbar spine x-ray on 01/15/17 revealed disc space narrowing at the L1-2 and L4-5 levels without fracture or subluxation noted. 01/15/17 blood cultures are no growth at 24 hours on 01/16/17. 01/17: The patient is awake and laying on her left side when seen this morning. She is visiting with friends. She complains of low back pain to the midline and left lateral going into the proximal leg. She does have some chest pain and shortness of breath secondary to pneumonia. Nursing reports that MRI has called for the patient. System Review Comments Respiratory: Some shortness of breath. Cardiovascular: Some chest pain. Musculoskeletal: Pain to the left hip and buttock. Pain to the mid and left lateral low back Neurological: Numbness to the anterior and inside left thigh. The remainder of the ROS is negative. Exam Results 01/15/17 01/15/17 01/16/17 01/16/17 01/17/17 01/17/17 06:00 18:00 06:00 18:00 06:00 18:00 Intake Total 4100 ml 1460 ml 1600 ml 480 ml 480 ml Balance 4100 ml 1460 ml 1600 ml 480 ml 480 ml Intake Oral 960 ml 1600 ml 480 ml 480 ml IV Total 4100 ml 500 ml # Voids 2 7 5 4 4 # Bowel Movements 0 1 Vital Signs Date Time Temp Pulse Resp B/P (MAP) Pulse Ox O2 Delivery O2 Flow Rate FiO2 01/17/17 09:27 82 01/17/17 07:39 97.8 90 20 106/55 (72) 98 01/17/17 04:36 87 01/17/17 00:14 97.9 103 17 136/62 (86) 97 01/16/17 20:24 97.9 91 17 102/55 (71) 98 01/16/17 16:30 98.1 92 18 110/70 (83) 99 01/16/17 11:39 97.6 100 18 129/76 (93) 98 01/16/17 10:26 80 01/16/17 08:45 98.0 90 18 119/78 (92) 100 01/16/17 00:15 98.0 89 18 120/75 (90) 100 01/15/17 20:45 98.1 95 17 124/72 (89) 100 01/15/17 18:38 97.4 101 19 128/84 (99) 97 01/15/17 15:50 98.2 99 18 109/59 (76) 97 01/15/17 11:53 97.7 110 18 136/72 (93) 98 01/15/17 08:28 97.4 110 18 142/84 (103) 100 01/15/17 06:01 115 01/15/17 04:00 97.5 106 18 124/79 (94) 100 01/15/17 00:00 98.3 107 18 128/81 (97) 96 01/14/17 23:33 98.3 107 18 128/81 (97) 96 01/14/17 20:00 104 01/14/17 20:00 97.3 102 18 123/76 (92) 97 01/14/17 18:03 98.0 105 22 133/74 (93) 95 01/14/17 17:06 01/14/17 17:04 98.4 105 22 127/61 (83) 97 Room Air 01/14/17 13:55 100 Nasal Cannula 2.00 01/14/17 13:35 98.2 131 20 155/99 (117) 100 Physical Examination GENERAL: Well-developed, well-nourished female who appears her stated age. Her affect is flat. She appears uncomfortable but not in any distress. SKIN: Warm, dry & intact w/o any evident rashes, ulcerations or other wounds except for a right lower back/buttock skin tag. HEENT: Normocephalic, atraumatic. PERRLA, EOMI. MMM & pink, tongue midline to protrusion. NECK: Midline cervical spine nontender to palpation, active ROM w/o any pain, no JVD, trachea midline. CARDIOVASCULAR: S1S2 w/RRR w/o M/G/R, radial & pedal pulses 2+ bilaterally, cap refill < 2 sec, no pedal edema. RESPIRATORY: CTAB w/o W/R/R but diminished, equal excursion, nonlaboured, on RA. GASTROINTESTINAL: Abdomen soft, nontender, no palpable masses or organomegaly, bowel sounds to all quadrants. MUSCULOSKELETAL: MILLER w/o difficulty. No evident clubbing or deformities. TTP to the left buttock/posterior hip & left lateral hip o/w extremities NTTP. TTP at the thoracolumbar junction going inferiorly to the sacrum with increasing tenderness, TTP to the left lateral lower back. NEUROLOGICAL: AAOx3. Speech clear & appropriate. Follows simple commands w/o difficulty. CN II-XII appear grossly intact. Sensation intact to light touch except the left anterior and medial thigh is decreased. Motor strength is 5/5 to all major flexion & extension muscle groups. Pain to low back at 30 degrees w/right leg lift and at 15 degrees w/left leg lift. No Marti's. No ankle clonus. Neutral plantar response. Lab, Micro, Other Results Recent Impressions Lumbar Spine X-Ray 01/15/17 0000 Signed Impressions: Service Date/Time: Sunday, January 15, 2017 19:52 - CONCLUSION: Disc space narrowing at the L1-L2 and L4-L5 levels. Kirk Downs MD Laboratory Tests Test 01/14/17 13:50 01/14/17 16:00 01/14/17 16:10 01/14/17 21:26 White Blood Count 14.9 TH/MM3 Red Blood Count 4.47 MIL/MM3 Hemoglobin 13.5 GM/DL Hematocrit 39.0 % Mean Corpuscular Volume 87.2 FL Mean Corpuscular Hemoglobin 30.2 PG Mean Corpuscular Hemoglobin Concent 34.7 % Red Cell Distribution Width 12.9 % Platelet Count 276 TH/MM3 Mean Platelet Volume 7.8 FL Neutrophils (%) (Auto) 58.3 % Lymphocytes (%) (Auto) 32.7 % Monocytes (%) (Auto) 6.2 % Eosinophils (%) (Auto) 2.2 % Basophils (%) (Auto) 0.6 % Neutrophils # (Auto) 8.7 TH/MM3 Lymphocytes # (Auto) 4.9 TH/MM3 Monocytes # (Auto) 0.9 TH/MM3 Eosinophils # (Auto) 0.3 TH/MM3 Basophils # (Auto) 0.1 TH/MM3 CBC Comment DIFF FINAL Differential Comment Prothrombin Time 10.2 SEC Prothromb Time International Ratio 0.9 RATIO Activated Partial Thromboplast Time 25.0 SEC Blood Urea Nitrogen 12 MG/DL Creatinine 0.84 MG/DL Random Glucose 126 MG/DL Total Protein 7.9 GM/DL Albumin 3.3 GM/DL Calcium Level 9.3 MG/DL Alkaline Phosphatase 64 U/L Aspartate Amino Transf (AST/SGOT) 13 U/L Alanine Aminotransferase (ALT/SGPT) 18 U/L Total Bilirubin 0.5 MG/DL Sodium Level 135 MEQ/L Potassium Level 3.8 MEQ/L Chloride Level 102 MEQ/L Carbon Dioxide Level 24.4 MEQ/L Anion Gap 9 MEQ/L Estimat Glomerular Filtration Rate 79 ML/MIN Total Creatine Kinase 56 U/L 54 U/L Troponin I LESS THAN 0.02 NG/ML LESS THAN 0.02 NG/ML B-Type Natriuretic Peptide 8 PG/ML Lactic Acid Level 2.2 mmol/L Test 01/14/17 21:40 01/15/17 00:15 01/15/17 00:25 01/15/17 05:50 Lactic Acid Level 4.7 mmol/L 4.1 mmol/L Urine Color YELLOW Urine Turbidity CLEAR Urine pH 5.5 Urine Specific [place] 1.041 Urine Protein TRACE mg/dL Urine Glucose (UA) 1000 mg/dL Urine Ketones 10 mg/dL Urine Occult Blood NEG Urine Nitrite NEG Urine Bilirubin NEG Urine Urobilinogen LESS THAN 2.0 MG/DL Urine Leukocyte Esterase NEG Urine WBC 1 /hpf Urine Squamous Epithelial Cells <1 /hpf Urine Mucus FEW /lpf Microscopic Urinalysis Comment CULT NOT INDICATED Total Creatine Kinase 53 U/L Troponin I LESS THAN 0.02 NG/ML White Blood Count 13.8 TH/MM3 Red Blood Count 3.95 MIL/MM3 Hemoglobin 11.8 GM/DL Hematocrit 35.2 % Mean Corpuscular Volume 89.2 FL Mean Corpuscular Hemoglobin 29.9 PG Mean Corpuscular Hemoglobin Concent 33.5 % Red Cell Distribution Width 13.1 % Platelet Count 231 TH/MM3 Mean Platelet Volume 8.0 FL Neutrophils (%) (Auto) 85.7 % Lymphocytes (%) (Auto) 12.0 % Monocytes (%) (Auto) 2.1 % Eosinophils (%) (Auto) 0.0 % Basophils (%) (Auto) 0.2 % Neutrophils # (Auto) 11.8 TH/MM3 Lymphocytes # (Auto) 1.7 TH/MM3 Monocytes # (Auto) 0.3 TH/MM3 Eosinophils # (Auto) 0.0 TH/MM3 Basophils # (Auto) 0.0 TH/MM3 CBC Comment DIFF FINAL Differential Comment Blood Urea Nitrogen 14 MG/DL Creatinine 0.81 MG/DL Random Glucose 157 MG/DL Calcium Level 7.9 MG/DL Sodium Level 139 MEQ/L Potassium Level 4.5 MEQ/L Chloride Level 110 MEQ/L Carbon Dioxide Level 20.9 MEQ/L Anion Gap 8 MEQ/L Estimat Glomerular Filtration Rate 82 ML/MIN Test 01/15/17 12:40 01/15/17 15:42 01/16/17 08:18 Lactic Acid Level 4.0 mmol/L 2.8 mmol/L White Blood Count 13.0 TH/MM3 Red Blood Count 4.15 MIL/MM3 Hemoglobin 12.2 GM/DL Hematocrit 36.9 % Mean Corpuscular Volume 89.0 FL Mean Corpuscular Hemoglobin 29.5 PG Mean Corpuscular Hemoglobin Concent 33.1 % Red Cell Distribution Width 13.2 % Platelet Count 254 TH/MM3 Mean Platelet Volume 7.7 FL Neutrophils (%) (Auto) 50.4 % Lymphocytes (%) (Auto) 40.2 % Monocytes (%) (Auto) 7.3 % Eosinophils (%) (Auto) 1.4 % Basophils (%) (Auto) 0.7 % Neutrophils # (Auto) 6.6 TH/MM3 Lymphocytes # (Auto) 5.2 TH/MM3 Monocytes # (Auto) 0.9 TH/MM3 Eosinophils # (Auto) 0.2 TH/MM3 Basophils # (Auto) 0.1 TH/MM3 CBC Comment AUTO DIFF Differential Total Cells Counted 100 Neutrophils % (Manual) 50 % Band Neutrophils % 1 % Lymphocytes % 46 % Monocytes % 3 % Neutrophils # (Manual) 6.6 TH/MM3 Differential Comment FINAL DIFF MANUAL Platelet Estimate NORMAL Platelet Morphology Comment NORMAL Red Cell Morphology Comment NORMAL Blood Urea Nitrogen 14 MG/DL Creatinine 0.80 MG/DL Random Glucose 118 MG/DL Calcium Level 8.6 MG/DL Sodium Level 139 MEQ/L Potassium Level 3.9 MEQ/L Chloride Level 106 MEQ/L Carbon Dioxide Level 25.9 MEQ/L Anion Gap 7 MEQ/L Estimat Glomerular Filtration Rate 83 ML/MIN Medical Decision Making Impression and Plan Impression: 1. Increased low back pain following recent alleged fall in the hospital. 2. Lumbar degenerative disc disease Patient continues to have left-sided low back pain radiating into the left buttock & hip w/numbness to the left anterior & medial thigh. Plan: MRI lumbar spine w/o & w/contrast due to low back symptoms, leukocytosis and loss of intervertebral disc space - concern for lumbar discitis. ADDENDUM at 1701: Spoke with Dr Mcclure who reviewed the MRI lumbar spine and felt that the patient was able to be discharged home with outpatient follow up in 2 weeks. Franklyn Rosales Jan 17, 2017 11:09
[2017-01-17] MEDS ORDERED: GADODIAMIDE PF 287 MG/ML 5 ML VIAL (for RAD MRI) IVCONTRAST ONE (11:44)
--- NOTE | 2017-01-17 12:11 | RADRPT ---
EXAM DATE/TIME: 01/17/2017 11:21 [facility] COMPARISON: SPINE LUMBAR LTD (AP & LAT), January 15, 2017, 19:52. INDICATIONS : Patient fell in hospital 2 days ago with back pain radiating down left leg. CONTRAST: 23 cc Omniscan (gadodiamide) IV MEDICAL HISTORY : None. SURGICAL HISTORY : Cholecystectomy. Tonsillectomy. skin graft on gums ENCOUNTER: Subsequent ACUITY: 2 day PAIN SCORE: 4/10 LOCATION: Left leg TECHNIQUE: Multiplanar multisequence MRI of the lumbar spine was performed with and without contrast. FINDINGS: The most caudal appearing lumbar vertebra is numbered as L5. VERTEBRAE: Homogeneous signal. Normal alignment. No acute bony fracture demonstrated. There is no evidence of a ny focal abnormal bone marrow edema in the vertebral bodies. There is disc dehydration with some disc space narrowing at L1-2, L3-4 and L4-5. CONUS: Normal level and configuration. POST CONTRAST: No abnormal areas of contrast enhancement are seen. T12-L1: The thecal sac has a normal diameter. No evidence of disc bulge or protrusion. The neural foramina are patent bilaterally. L1-L2: The thecal sac has a normal diameter. No evidence of disc bulge or protrusion. The neural foramina are patent bilaterally. L2-L3: The thecal sac has a normal diameter. No evidence of disc bulge or protrusion. The neural foramina are patent bilaterally. L3-L4: Focal mild central bulging. The neural foramina are patent bilaterally. L4-L5: Mild diffuse broad-based bulging. The neural foramina are patent bilaterally. Mild facet arthritis. L5-S1: The thecal sac has a normal diameter. No evidence of disc bulge or protrusion. The neural foramina are patent bilaterally. CONCLUSION: 1. There is no evidence to indicate acute bony fracture. 2. There is disc dehydration with disc space narrowing at L1-2, L3-4 and L4-5. 3. Focal mild central bulging L3-4. 4. Mild diffuse broad-based bulging L4-5. Silvino Mendoza MD on January 17, 2017 at 12:07 Board Certified Radiologist. This report was verified electronically.
[2017-01-17 12:26] VITALS: BP 134/89; PULSE 111; RESP 20; TEMP 97.9; O2SAT 100
[2017-01-17 15:30] VITALS: BP 100/56; PULSE 110; RESP 20; TEMP 98.5; O2SAT 97
[2017-01-17] MEDS: AZITHROMYCIN INJ 500 MG in SODIUM CHLOR 0.9% 250 ML INJ 250 ML IV SCH (16:55)
[2017-01-17] MEDS ORDERED: LACTCHW3 CHEW (17:44)
== END 2017-01-17 19:06 | disposition home or self-care (01) | DRG 194 ==
LOC: NEPE 13:31 → OBSVTOIN 16:29 → NEDA 16:29 → N05B 17:13
PROVIDERS: ADMIT Hospitalist; ATTEND Hospitalist
DX: J18.9 Pneumonia, unspecified organism (principal); J81.1 Chronic pulmonary edema; M51.36 Other intervertebral disc degeneration, lumbar region; F31.9 Bipolar disorder, unspecified; Z86.711 Personal history of pulmonary embolism; Z87.442 Personal history of urinary calculi
CPT/HCPCS: 71275; 72100; 72158; 76937; 80048; 80053; 81001; 82550; 83605; 83880; 84484; 84703; 85007; 85025; 85027; 85610; 85730; 87040; 93005; A9579; J0456; J0692; J1885; J2060; J2270; J2405; J2930; J7030; J7040; J7050; Q9967